=== PATIENT | male | born 1970 | race African-American/Black ===

== ENCOUNTER 2016-03-19 10:05 | Day surgery (SDC) | payer OTHER ==
--- NOTE | 2016-01-29 15:16 | HP ---
DATE OF ADMISSION: 01/07/16 Patient to be admitted to [facility]. HISTORY: This is a 45-year-old man admitted to the hospital for open repair of a complex chronically incarcerated abdominal wall hernia with possible component separation. Patient has had several prior interventions in the form of an appendectomy in approximately 2005. He went on to develop an abdominal hernia, which required a repair with mesh in 2007. He has also had a low back fusion in 2012. Patient has gone on to develop recurrence of his hernia involving the upper midline and stemming off significantly to the right of the midline. No underlying GI, , or respiratory complaints to suggest predisposition to hernia formation. Patient's past medical history is significant for hypertension, heart disease, status post CO in 2013. No history of diabetes, respiratory, or hepatic insufficiency. Past surgical history as outlined above. ALLERGIES: None known. MEDICATIONS: Entresto, carvedilol, spironolactone, Lasix, warfarin once daily. SOCIAL HISTORY: Negative tobacco. Patient did smoke approximately 20 years ago. Negative alcohol use. FAMILY HISTORY: Nil. REVIEW OF SYSTEMS: Nil. PHYSICAL EXAMINATION: Abdomen obese, soft, nontender. Large hernia involving the entire central ring of the abdomen extending well up into the upper midline and off to the right of the midline itself. It is irreducible. Surgical scars noted consistent with prior hernia surgery as well as appendectomy. IMPRESSION: Complex chronically incarcerated recurrent incisional/ventral abdominal wall hernia. PLAN: Open repair of complex recurrent chronically incarcerated incisional/ventral abdominal wall hernia with mesh/possible component separation. Indications, alternatives, possible complications reviewed. Consent obtained. Patient was seen preoperatively by Dr. Candido Santiago, of the primary care service. Patient also to be seen preoperatively by Dr. Alejandro Lawler, of the cardiology service. Obviously his anticoagulation will need to be managed in and around the time of surgery. Indications, alternatives, possible complications are reviewed. Consent obtained. Kaitlyn GARCIA/[id number] Cc: MD Alejandro Damico MD [facility]
[2016-03-18 12:40] VITALS: BMI 37.3
[2016-03-19 10:50] LABS: INR 0.96 (0.82-1.09); PROTHROMBIN TIME (PATIENT) 10.5 SEC (9.98-11.88)
[2016-03-19] MEDS ORDERED: ceFAZolin SODIUM 1 GM VIAL ONE ×2 (10:50→13:43)
[2016-03-19 10:53] LABS: ACTIVATED PTT 28.3 SECONDS (26.9-34.4)
[2016-03-19] MEDS ORDERED: SUCCINYLCHOLINE CHLORIDE 200 MG/10 ML VIAL ONE (13:09)
[2016-03-19] MEDS ORDERED: ROCURONIUM BROMIDE 50 MG/5 ML VIAL ONE ×3 (13:09→14:16)
[2016-03-19] MEDS ORDERED: PROPOFOL 20 ML ONE ×3 (13:09→13:35)
[2016-03-19] MEDS ORDERED: MIDAZOLAM HCL 2 MG/2 ML SINGLE DOSE VIAL ONE ×3 (13:09→15:37)
[2016-03-19] MEDS ORDERED: ceFAZolin SODIUM 1 GM VIAL IVPB ONE (13:44)
[2016-03-19] MEDS ORDERED: morphine CARPU-JECT 10 MG/1 ML DISP.SYRIN IVPB PRN (14:03)
[2016-03-19] MEDS ORDERED: ONDANSETRON 4 MG/2 ML VIAL IVPB PRN (14:03)
[2016-03-19] MEDS ORDERED: ACETAMINOPHEN 325 MG TABLET (FP) PO PRN (14:03)
[2016-03-19] MEDS ORDERED: DEXAMETHASONE SOD PHOSPHATE 4 MG/1 ML VIAL ONE (14:07)
[2016-03-19] MEDS ORDERED: D5-1/2NS+20 MEQ KCL - 1,000 ML IV SCH (14:15)
[2016-03-19] MEDS ORDERED: GLYCOPYRROLATE 0.2 MG/1 ML VIAL ONE (15:06)
[2016-03-19] MEDS ORDERED: NEOSTIGMINE METHYLSULFATE 0.5 MG/ML - 10 ML MDV ONE (15:06)
[2016-03-19] MEDS ORDERED: PROMETHAZINE HCL 25 MG/1 ML VIAL IVPUSH PRN (15:56)
[2016-03-19] MEDS ORDERED: ONDANSETRON 4 MG/2 ML VIAL IVPUSH PRN (15:56)
[2016-03-19] MEDS ORDERED: LACTATED RINGERS SOLUTION 1,000 ML IV SCH (16:00)
[2016-03-19] MEDS: hydrALAZINE HCL 20 MG/ML VIAL ONE ×2 (16:00→16:15)
[2016-03-19] MEDS ORDERED: FLUMAZENIL 0.5 MG/5 ML VIAL ONE (16:04)
[2016-03-19] MEDS ORDERED: morphine CARPU-JECT 4 MG/1 ML DISP.SYRIN IVPB PRN (20:54)
[2016-03-19] MEDS: CARVEDILOL 25 MG TABLET (FP) PO SCH (20:59)
[2016-03-19] MEDS: oxyCODONE HCL 5 MG TABLET PO PRN (20:59)
[2016-03-20 02:48] VITALS: TEMP 98.5
[2016-03-20] MEDS: oxyCODONE HCL 5 MG TABLET PO PRN ×2 (03:45→09:35)
[2016-03-20 08:18] VITALS: BP 108/58; PULSE 79
[2016-03-20] MEDS: CARVEDILOL 25 MG TABLET (FP) PO SCH (09:32)
[2016-03-20] MEDS ORDERED: PANTOPRAZOLE SODIUM 100 ML IVPB SCH (10:00)
[2016-03-20] MEDS ORDERED: ENOXAPARIN NA (PORCINE) 40 MG/0.4 ML DISP.SYRIN SQ SCH (10:00)
[2016-03-20] MEDS ORDERED: SPIRONOLACTONE 25 MG TABLET (FP) PO SCH (10:00)
--- NOTE | 2016-03-20 11:01 | OP ---
DATE OF OPERATION: 03/19/2016 PREOPERATIVE DIAGNOSIS: Complex chronically incarcerated ventral/incisional abdominal wall hernia. POSTOPERATIVE DIAGNOSIS: Complex chronically incarcerated ventral/incisional abdominal wall hernia. PROCEDURE: Bilateral component separation repair of complex chronically incarcerated ventral/incisional abdominal wall hernia with mesh/mobilization, bladder. OPERATING SURGEON: Bryce Anglin MD COMMISSARY MANAGER: Vega Leavitt MD ANESTHESIA: Derrick Archer MD (general) HISTORY: A 46-year-old man who is morbidly obese and presents with a large anterior abdominal wall hernia which is chronically incarcerated and recurrent. Indications, alternatives, possible complications of the intended procedure reviewed. Consent obtained. PROCEDURE: With the patient in the supine position, under general anesthesia, the abdomen was prepped and draped in the usual sterile fashion using chlorhexidine. A midline incision was made beginning in the supraumbilical midline, with the incision extending into the infraumbilical midline. The incision was deepened into the subcutaneous space. The large hernia was easily encountered in the subcutaneous space. The hernia sac was cleaned to the level of the fascial ring. The sac was opened and found to contain incarcerated omentum. Lysis of adhesions ensued, and the incarcerated contents were reduced. The undersurface of both the supra and infraumbilical region was then examined, and there were other defects along the course of the midline. The bridge between these was divided and 1 large defect left. In order to bridge the defect, I had to recreate the midline; a bilateral component separation procedure was necessary. First directing our attention to the patient's right side, the posterior rectus sheath was from the overlying right rectus musculature. This mobilization extended both superiorly, inferiorly, and laterally, ultimately approaching the junction of the rectus muscle with the right transversus and oblique musculature. Separation of the oblique musculature from the underlying thin transversus muscle ensued and using the same plane the dissection was carried out further in the lateral, superior, and inferior direction. Now directing our attention to the patient's left side, the posterior sheath was again from the overlying rectus musculature and mobilized as described above to the right. Again, the oblique musculature was from the transversus musculature with the dissection again extending in the superior, lateral, and inferior directions. The bladder was mobilized free from its attachment in the inferior aspect of the anterior abdominal wall so that it would not be caught up either with mesh or with the intended closure. The posterior sheath was then approximated in the midline using a continuous 3-0 chromic suture, recreating the midline and closing the abdominal cavity. A composite mesh was then made, fixing a piece of 20 x 20 Phasix mesh to a similar size piece of ProGrip mesh. The mesh was placed in the retrorectus space with the Phasix side down. The mesh was then fixed circumferentially using an AbsorbaTack and counter palpation. Several interrupted 0 Prolene sutures were also placed, anchoring the mesh through and through to the overlying abdominal musculature. Ultimately, after adequate hemostasis and irrigation, the anterior sheath was then closed in a continuous and interrupted fashion using No. 1 PDS suture material, leaving the mesh entirely in the retrorectus space. A Ramón-Miles drain was placed in the capacious subcutaneous space and was pulled out through a separate stab wound in the left lower quadrant where the drain was tacked to the skin with 3-0 nylon suture material. The subcutaneous space was then irrigated and adequate hemostasis ensured. Subcuticular 3-0 Vicryl sutures were placed to approximate the skin edges. Ultimately, metallic clips were used to approximate the skin edges of the wound. Dermabond placed over the metallic clips and the procedure terminated. COUNTS: Needle, sponge, and instrument counts correct. ESTIMATED BLOOD LOSS: 50 mL. DRAINS: One J-P. IMPLANT: Phasix mesh/ProGrip mesh. The patient tolerated the procedure, and anesthesia was terminated. Kaitlyn GARCIA/[id number] cc: Candido Santiago MD MTDD
== END 2016-03-20 10:55 | disposition home or self-care (01) ==
LOC: JASUSAT 10:05 → J6S 19:40 → JASUSAT 03-20 10:55
PROVIDERS: ATTEND Surgery
PROC: 0WUF0JZ Supplement Abdominal Wall with Synthetic Substitute, Open Approach (ICD-10-PCS; principal; 2016-03-19 12:00)
DX: K43.0 Incisional hernia with obstruction, without gangrene (principal); M62.08 Separation of muscle (nontraumatic), other site; E66.01 Morbid (severe) obesity due to excess calories
CPT/HCPCS: 36415; 85610; 85730; 86850; 86900; 86901; 94010; 94760

== ENCOUNTER 2017-04-14 18:53 | Inpatient (IN) | payer OTHER ==
[2017-04-14] MEDS ORDERED: ASPIRIN 81 MG CHEWABLE TABLETS PO ONE (18:59)
--- NOTE | 2017-04-14 18:59 | PDOC ---
Rapid Medical Evaluation Time Seen by Provider: 04/14/17 18:55 Medical Evaluation: Allergies Allergy/AdvReac Type Severity Reaction Status Date / Time No Known Drug Allergies Allergy Verified 04/14/17 18:55 soy Allergy Verified 04/14/17 18:55 dust Allergy Unknown Uncoded 04/14/17 18:55 04/14/17 18:56 I have performed a brief in-person evaluation of this patient. The patient presents with a chief complaint of: chest pain and SOB x2 days Pertinent physical exam findings:HR-133, Spo2-92% RA Lungs CTAB, Regular rhythm no m/r/g. I have ordered the following: EKG, CXR, labs The patient will proceed to the ED for further evaluation. Discharge Disposition - Diagnosis Chest pain - Referrals - Patient Instructions - Post Discharge Activity
--- NOTE | 2017-04-14 19:39 | PDOC ---
History of Present Illness - General Chief Complaint: Chest Pain Stated Complaint: S.O.B Time Seen by Provider: 04/14/17 18:55 History Source: Patient Exam Limitations: No Limitations - History of Present Illness Initial Comments: CHIEF COMPLAINT: 47 y/o afebrile, morbidly obese male with PMH HTN, CHF, HLD and hx of DVTs (supposed to be on warfarin), non-compliant with all medications for "many months" c/o worsening SOB and CP x 3 days. HISTORY OF PRESENT ILLNESS: The patient states the chest pain is worse with cough and does not radiate. The patient admits to dry cough and mild runny nose. He has been non compliant with all medications for the past "few months" because, according to his , he is "hard headed". He has had multiple DVTs in the past and is supposed to be on Coumadin. He denies MÉNDEZ, fever, changes in vision/hearing, neck pain, earache, sore throat, hemoptysis, n/v/d, back pain, jaw pain, left arm pain, abd pain, hematuria, dysuria, swelling/redness/ tenderness to legs. He is a non-smoker. PCP is Dr. Traore Tool Sharpener is Dr. Lawler Vital signs on arrival are notable for pulse of 133 with O2 sat of 92% on RA. RR 26. BP 176/128. REVIEW OF SYSTEMS: GENERAL/CONSTITUTIONAL: No fever/chills. No weakness. No weight change. HEAD, EYES, EARS, NOSE AND THROAT: No change in vision. No ear pain or discharge. No sore throat. CARDIOVASCULAR: +chest pain and SOB. RESPIRATORY: +dry cough. No wheezing or hemoptysis. GASTROINTESTINAL: No nausea, vomiting, diarrhea, abdominal pain. GENITOURINARY: No dysuria, frequency, or change in urination. MUSCULOSKELETAL: No joint or muscle swelling or pain. No neck or back pain. SKIN: No rash or easy bruising. NEUROLOGIC: No headache, vertigo, loss of consciousness, or loss of sensation. PHYSICAL EXAM: GENERAL: The patient is a morbidly obese, awake, alert, and fully oriented, male in no acute distress. He is not diaphoretic. He can speak in full sentences without difficulty. He is non toxic appearing. HEAD: Normal with no signs of trauma. ENT: Pupils equal, round and reactive to light, extraocular movements intact, sclera anicteric, conjunctiva clear. LUNGS: Clear to auscultation bilaterally. Normal excursion. No respiratory distress or use of accessory muscles. CV: Tachycardic with regular rhythm, S1/S2, no MRG. Cap refill < 2 sec. ABDOMEN: Soft, obese, non-tender even to deep palpation, no hepatomegaly or splenomegaly, no masses. EXTREMITIES: Normal range of motion, no edema. No erythema, warmth or TTP to b/ l LEs. NEUROLOGICAL: Normal speech. CN II-XII grossly intact. No slurred speech. No facial drooping. PSYCH: Normal mood, normal affect. SKIN: Warm, dry, normal turgor, no rashes or lesions noted. Past History - Past Medical History Allergies/Adverse Reactions: Allergies Allergy/AdvReac Type Severity Reaction Status Date / Time No Known Drug Allergies Allergy Verified 04/14/17 18:55 soy Allergy Verified 04/14/17 18:55 dust Allergy Unknown Uncoded 04/14/17 18:55 Home Medications: Ambulatory Orders Carvedilol [Coreg -] 25 mg PO BID tablet 11/09/15 Spironolactone [Aldactone -] 50 mg PO DAILY tablet 11/09/15 Warfarin Na [Coumadin -] 5 mg PO DAILY@1800 tablet 11/09/15 Oxycodone HCl/Acetaminophen [Percocet 5-325 mg Tablet] 1 tab PO Q4H PRN #42 tablet MDD 6 03/19/16 Cardiac Disorders: Yes ([place] 07/2012) CHF: Yes HTN: Yes - Surgical History Abdominal Surgery: Yes (appednix) Cardiac Surgery: Yes (ANGIO) - Immunization History Immunization Up to Date: Yes - Suicide/Smoking/Psychosocial Hx Smoking Status: No Smoking History: Never smoked Have you smoked in the past 12 months: No Number of Cigarettes Smoked Daily: 0 Cigars Per Day: 0 Hx Alcohol Use: No Drug/Substance Use Hx: No Substance Use Type: None Hx Substance Use Treatment: No *Physical Exam - Vital Signs Last Vital Signs Temp Pulse Resp BP Pulse Ox 99.1 F 127 H 32 H 167/124 98 04/14/17 18:56 04/14/17 22:02 04/14/17 22:02 04/14/17 22:02 04/14/17 22:02 Heart Score/ECG Review - History History: Moderately suspicious - Electrocardiogram EKG: Non specific repolarization disturbance - Age Age: 45-65 - Risk Factors Risk Factors Heart Score: Yes Hx Hypercholesterolemia, Yes Hx Hypertension, Yes Hx Obesity Based on the list above the patient has:: >/=3 risk factors or Hx atherosclerotic disease - ECG Intrepretation Comment:: Twelve-lead EKG was performed and reviewed by Dr. Vazquez. There is sinus tachycardia. The axis is normal. The intervals are normal. Non specific T wave abnormality. Impression: Abnormal twelve-lead EKG When compared to prior of 11/06/16, flipped T waves in V5 and V6, along with tachycardia. ED Treatment Course - LABORATORY CBC & Chemistry Diagram: 04/14/17 19:23 04/14/17 19:23 - ADDITIONAL ORDERS Additional order review: Laboratory Results 04/14/17 04/14/17 19:23 19:23 PT with INR 11.10 INR 0.98 D-Dimer 1545 H Sodium 141 Potassium 4.0 Chloride 107 Carbon Dioxide 26 Anion Gap 8 BUN 10 D Creatinine 1.1 Creat Clearance w eGFR > 60 Random Glucose 93 D Calcium 8.5 Magnesium 1.9 Total Bilirubin 0.7 D AST 27 D ALT 50 D Alkaline Phosphatase 86 Creatine Kinase 216 Creatine Kinase Index 1.2 CK-MB (CK-2) 2.729 Troponin I 0.41 H D B-Natriuretic Peptide 1851.17 H Total Protein 6.8 Albumin 3.6 04/14/17 19:23 RBC 5.48 MCV 77.4 L MCHC 31.8 L RDW 16.2 H D MPV 8.1 Neutrophils % 66.6 D Lymphocytes % 21.8 D Monocytes % 8.6 Eosinophils % 2.6 D Basophils % 0.4 D - RADIOLOGY Radiology Studies Ordered: Category Date Time Status CHEST CTA [CT] Stat CT Scan 04/14/17 21:00 Completed CHEST X-RAY PORTABLE* [RAD] Stat Radiology 04/14/17 19:51 Taken DUPLEX VASCUL US-2LEGS [US] Stat Ultrasound 04/14/17 19:51 Completed - Medications Given in the ED: ED Medications Discontinued Medications Generic Name Dose Route Start Last Admin Trade Name Freq PRN Reason Stop Dose Admin Aspirin 325 mg 04/14/17 18:59 04/14/17 19:47 Asa - PO 04/14/17 19:00 325 mg ONCE ONE Administration Diphenhydramine HCl 50 mg 04/14/17 21:58 04/14/17 22:00 Benadryl Injection - IVPUSH 04/14/17 21:59 50 mg ONCE ONE Administration Furosemide 40 mg 04/14/17 22:06 04/14/17 22:26 Lasix Injection - IVPUSH 04/14/17 22:07 40 mg ONCE ONE Administration Methylprednisolone Sodium Succinate 125 mg 04/14/17 21:58 04/14/17 22:00 Solu-Medrol - IVPUSH 04/14/17 21:59 125 mg ONCE ONE Administration Metoprolol Tartrate 5 mg 04/14/17 19:54 04/14/17 20:03 Lopressor Injection - IVPUSH 04/14/17 19:55 5 mg ONCE ONE Administration Nitroglycerin 0.4 mg 04/14/17 20:33 04/14/17 20:36 Nitrostat - SL 04/14/17 20:34 0.4 mg ONCE ONE Administration Medical Decision Making - Medical Decision Making A/P: 47 y/o male with worsening chest pain and SOB for the past 3 days. Pt has a hx of multiple DVTs, HTN and HLD and is non complaint with all medications. Plan is to do a full cardiac work up. Patient is on cardiac monitoring, has been given 325mg of aspirin, was given 5mg of Lopressor IV and is on O2 via NC. Pressure still 164/129 after lopressor. Will give SL nitro Pt had a hard time lying down for the CTA of his chest and admits to me that he has to sit up to sleep because he is too short of breath to lie flat. He stopped taking the medicine that "made him pee" months ago. Patient returned from CTA and LE ultrasound and developed hives on his upper chest and back and began coughing up pink frothy sputum and sweating. he had never had IV contrast in the past and was having an allergic reaction. Ordered IV benadryl, IV solumedrol and non rebreather. 5 minutes after medication administration he began feeling much better and his breathing rate slowed. He does admit after having SL nitro he feels better with almost complete resolution of CP. Chest CTA IMPRESSION: No evidence of PE. Pulmonary vascular congestion and pulmonary edema suggestive of CHF exacerbation. Will order IV lasix. Patient informed he will be admitted. Venous doppler IMPRESSION: No evidence of DVT in either leg. Patient accepted by Dr. Carbajal for admission to [facility]. Dr. Lawler on for consult *DC/Admit/Observation/Transfer Diagnosis at time of Disposition: Chest pain Qualifiers: Chest pain type: unspecified Qualified Code(s): R07.9 - Chest pain, unspecified CHF (congestive heart failure) Qualifiers: Heart failure type: unspecified Heart failure chronicity: unspecified Qualified Code(s): I50.9 - Heart failure, unspecified - Discharge Dispostion Condition at time of disposition: Fair Admit: Yes Decision to Admit order Date/Time: Decision to Admit Order Category Date Time Status Decision to Admit to Hospital Routine Admission 04/14/17 22:26 Ordered - Referrals - Patient Instructions - Post Discharge Activity
[2017-04-14 19:44] LABS: BASO % 0.4 % (0-2.0); EOS % 2.6 % (0-4.5); HEMATOCRIT 42.4 % (35.4-49); HEMOGLOBIN 13.5 GM/dL (11.7-16.9); LYMPH % 21.8 % (8-40); MCH 24.6 pg (25.7-33.7); MCHC 31.8 g/dl (32.0-35.9); MEAN CELL VOLUME 77.4 fl (80-96); MEAN PLT VOLUME 8.1 fl (7.5-11.1); MONO % 8.6 % (3.8-10.2); NEUT % 66.6 % (42.8-82.8); PLATELET COUNT 261 K/MM3 (134-434); RBC 5.48 M/mm3 (4.00-5.60); RDW 16.2 % (11.9-15.9); WHITE BLOOD COUNT 8.8 K/mm3 (4.0-10.0)
[2017-04-14] MEDS ORDERED: ASPIRIN 325 MG TABLET ONE (19:45)
[2017-04-14] MEDS ORDERED: METOPROLOL TARTRATE 5 MG/5 ML VIAL IVPUSH ONE (19:54)
[2017-04-14] MEDS ORDERED: METOPROLOL TARTRATE 5 MG/5 ML VIAL ONE (19:57)
[2017-04-14 20:09] LABS: INR 0.98 (0.82-1.09); PROTHROMBIN TIME (PATIENT) 11.1 SEC (9.98-11.88)
[2017-04-14 20:21] LABS: ALBUMIN 3.6 g/dl (3.4-5.0); ANION GAP 8 (8-16); BILIRUBIN,TOTAL 0.7 mg/dL (0.2-1.0); BLOOD UREA NITROGEN 10 mg/dL (7-18); CALCIUM 8.5 mg/dL (8.5-10.1); CHLORIDE 107 mmol/L (98-107); CO2 26 mmol/L (21-32); CREATININE 1.1 mg/dL (0.7-1.3); GLUCOSE,RANDOM 93 mg/dL (74-106); MAGNESIUM 1.9 mg/dL (1.8-2.4); SGOT/AST 27 U/L (15-37); SGPT/ALT 50 U/L (12-78); SODIUM 141 mmol/L (136-145); TOT PROT 6.8 g/dl (6.4-8.2)
[2017-04-14 20:24] LABS: ALK PHOS 86 U/L (45-117); N-TERMINAL BNP 1851.17 pg/ml (5-125)
[2017-04-14] MEDS ORDERED: NITROGLYCERIN SUBLINGUAL 1/150 0.4 MG TAB SL ONE (20:33)
--- NOTE | 2017-04-14 20:58 | PDOC ---
*Physical Exam - Vital Signs Last Vital Signs Temp Pulse Resp BP Pulse Ox 99.1 F 116 H 24 171/112 92 L 04/14/17 18:56 04/14/17 19:53 04/14/17 19:53 04/14/17 20:03 04/14/17 18:56 ED Treatment Course - LABORATORY CBC & Chemistry Diagram: 04/14/17 19:23 04/14/17 19:23 - ADDITIONAL ORDERS Additional order review: Laboratory Results 04/14/17 04/14/17 19:23 19:23 PT with INR 11.10 INR 0.98 D-Dimer 1545 H Sodium 141 Potassium 4.0 Chloride 107 Carbon Dioxide 26 Anion Gap 8 BUN 10 D Creatinine 1.1 Creat Clearance w eGFR > 60 Random Glucose 93 D Calcium 8.5 Magnesium 1.9 Total Bilirubin 0.7 D AST 27 D ALT 50 D Alkaline Phosphatase 86 Creatine Kinase 216 Troponin I 0.41 H D B-Natriuretic Peptide 1851.17 H Total Protein 6.8 Albumin 3.6 04/14/17 19:23 RBC 5.48 MCV 77.4 L MCHC 31.8 L RDW 16.2 H D MPV 8.1 Neutrophils % 66.6 D Lymphocytes % 21.8 D Monocytes % 8.6 Eosinophils % 2.6 D Basophils % 0.4 D - Medications Given in the ED: ED Medications Discontinued Medications Generic Name Dose Route Start Last Admin Trade Name Freq PRN Reason Stop Dose Admin Aspirin 325 mg 04/14/17 18:59 04/14/17 19:47 Asa - PO 04/14/17 19:00 325 mg ONCE ONE Administration Metoprolol Tartrate 5 mg 04/14/17 19:54 04/14/17 20:03 Lopressor Injection - IVPUSH 04/14/17 19:55 5 mg ONCE ONE Administration Nitroglycerin 0.4 mg 04/14/17 20:33 04/14/17 20:36 Nitrostat - SL 04/14/17 20:34 0.4 mg ONCE ONE Administration Medical Decision Making - Medical Decision Making 04/14/17 20:57 agree with care from RADHA Champagne *DC/Admit/Observation/Transfer Diagnosis at time of Disposition: Chest pain - Referrals - Patient Instructions - Post Discharge Activity
[2017-04-14] MEDS ORDERED: methylPREDNISolone NA SUCC 125 MG/2 ML VIAL ONE (21:52)
[2017-04-14] MEDS ORDERED: methylPREDNISolone NA SUCC 125 MG/2 ML VIAL IVPUSH ONE (21:58)
[2017-04-14] MEDS ORDERED: FUROSEMIDE 40 MG/4 ML INJECTABLE VIAL IVPUSH ONE ×2 (22:06→23:44)
[2017-04-14] MEDS ORDERED: FUROSEMIDE 40 MG/4 ML INJECTABLE VIAL ONE (22:18)
--- NOTE | 2017-04-14 22:44 | PN ---
Teaching Attending Note Name of Resident: Stephan Vidales ATTENDING PHYSICIAN STATEMENT I saw and evaluated the patient. I reviewed the resident's note and discussed the case with the resident. I agree with the resident's findings and plan as documented. SUBJECTIVE: 47 M with Med hx of Morbid Obesity, ANDRZEJ, HTN, CHF, CAD, Art. thrombus, DVT, (NOn - Complaint w. all meds) who presents with shortness of breath and chest pain X several months. As per his he is "hard- headed" and d/c'd his Coumadin. No headaches or dizziness. No N/V/D. States he has sub sternal chest pain that is non-radiating. Notes he is not able to lay flat, without being short of breath. States he has not been taking any of his meds in over a month. PCP: DR. Traore OBJECTIVE: Physical: VS: Vital Signs Period Temp Pulse Resp BP Sys/Dorman Pulse Ox Last 24 Hr 99.1 F 116-133 24-32 0-176/0-128 92-98 GEN: NAD, resting in bed, AA0X3 HEENT: NCAT, PERRL, throat without erythema or exudates CARD: S tach S1, S2 RESP: Decreased breath sounds at bilateral bases ABD: BSx4, NTD to palpation EXT: - C/C/E CBCD WBC 8.8 K/mm3 (4.0-10.0) D 04/14/17 19: RBC 5.48 M/mm3 (4.00-5.60) 04/14/17 19:23 Hgb 13.5 GM/dL (11.7-16.9) 04/14/17 19:23 Hct 42.4 % (35.4-49) 04/14/17 19:23 MCV 77.4 fl (80-96) L 04/14/17 19:23 MCHC 31.8 g/dl (32.0-35.9) L 04/14/17 19: RDW 16.2 % (11.9-15.9) H D 04/14/17 19:23 Plt Count 261 K/MM3 (134-434) 04/14/17 19: MPV 8.1 fl (7.5-11.1) 04/14/17 19:23 CMP Sodium 141 mmol/L (136-145) 04/14/17 19:23 Potassium 4.0 mmol/L (3.5-5.1) 04/14/17 19:23 Chloride 107 mmol/L (98-107) 04/14/17 19:23 Carbon Dioxide 26 mmol/L (21-32) 04/14/17 19:23 Anion Gap 8 (8-16) 04/14/17 19:23 BUN 10 mg/dL (7-18) D 04/14/17 19:23 Creatinine 1.1 mg/dL (0.7-1.3) 04/14/17 19:23 Creat Clearance w eGFR > 60 (>60) 04/14/17 19:23 Random Glucose 93 mg/dL (74-106) D 04/14/17 19:23 Calcium 8.5 mg/dL (8.5-10.1) 04/14/17 19:23 Total Bilirubin 0.7 mg/dL (0.2-1.0) D 04/14/17 19:23 AST 27 U/L (15-37) D 04/14/17 19:23 ALT 50 U/L (12-78) D 04/14/17 19:23 Alkaline Phosphatase 86 U/L (45-117) 04/14/17 19:23 Total Protein 6.8 g/dl (6.4-8.2) 04/14/17 19: Albumin 3.6 g/dl (3.4-5.0) 04/14/17 19:23 CARDIAC ENZYMES Creatine Kinase 216 IU/L (39-308) 04/14/17 19:23 Troponin I 0.41 ng/ml (0.00-0.05) H D 04/14/17 19:23 Ambulatory Orders Carvedilol [Coreg -] 25 mg PO BID tablet 11/09/15 Spironolactone [Aldactone -] 50 mg PO DAILY tablet 11/09/15 Warfarin Na [Coumadin -] 5 mg PO DAILY@1800 tablet 11/09/15 Oxycodone HCl/Acetaminophen [Percocet 5-325 mg Tablet] 1 tab PO Q4H PRN #42 tablet MDD 6 03/19/16 CXR- COngestion CTA- Neg. For PE, hyperplastic mediastinal LN reactive, Pulm. Vasc. Congestion DUPLEX- NEg. for DVT EKG: ECHO: 04/10- EF 21%, LV mod Dilated, LA mod dilated, mild pulm. htn, ASSESSMENT AND PLAN: 47 M with Med hx of Morbid Obesity, ANDRZEJ, HTN, CHF, CAD, Art. thrombus, DVT, (NOn - Complaint w. all meds) who presents with shortness of breath and chest pain X several months, being admitted for Acute Exacerbation of CHF and Troponin Elevation. 1.) Acute Exacerbation of Systolic Heart Failure - Lasix IV - Strict I/O - Daily Weights - NA/Fluid Restrict - ECHO Repeat - Cardio Consult - Advise Compliance with Coreg, aldactone - Would Add Stan or Arb 2.) Troponin Elevation - Demand Vs. NSTEMI - Hep. gtt - Morphine/Nitro PRn Pain - 02 - C/W Coreg - TRend Trop/EKG 3.) Hx. OF Recurrent DVTs - Hep. Gtt - Bridge to Coumadin or Noac if able in am - Goal INR 2-3 - Needs Hypercoag. [facility] outpt. if Not already done 4.) HTN - C/W Coreg, Aldactone 5.) ANDRZEJ - C/W CPAP at night Place in Med-Tele
--- NOTE | 2017-04-14 22:55 | HP ---
CHIEF COMPLAINT: SOB and Chest pain x4 days PCP: Dr Traore Clinical Staff Rn: Dr Lawler HISTORY OF PRESENT ILLNESS: 47 y/o obese male with PMHx of HTN, systolic CHF, HLD, ANDRZEJ (on home CPAP), hay fever, prior anaphylactic reaction, recurrent DVTs , non-compliant on medications for at least 5 months, now c/o worsening SOB and Chest Pain x 3 days. Patient has had exertional SOB, orthopnea and PND that has worsened over the past 4 days. Denies leg/ abdominal pain/swelling/early satiety. He developed retrosternal "pressure-like" chest pain x 4 days ago, that is worsened by movement, but non radiating. Pt reports a dry cough that worsens the chest pain. No associated n/v/diaphoresis. No syncope, or palpitations. Pt had an echo done 2015 that showed EF 21%, with his last cardio follow up and medication use about 5 months ago. After the CTA to R/O PE today, pt suddenly developed acute choking sensation, with increasingly productive cough of pink sputum and generalized redness which resolved with benadryl and solumedrol. Pt had similar reaction in past with collapse following ingestion of soy. ER course was notable for: (1) ASA-325, iv lasix 40mg stat, iv morphine 2mg stat, sl nitroglycerin stat (2) Trops-0.41, BNP-1545, INR-0.98 (3) Persistent mkmmn-[id number], tachypnea- 31 (on RA/Non rebreather), BP- 167/124- 145/109 (4) EKG- sinus tachy, non specific twi Recent Travel: None PAST MEDICAL HISTORY: HTN, systolic CHF, HLD, ANDRZEJ (on home CPAP), hay fever, prior anaphylactic reaction, recurrent DVTs PAST SURGICAL HISTORY: appendectomy Ventral herniorrhaphy Social History: Smoking:Quit 25 yrs ago. Smoked a pack/day cannot remember for how long Alcohol:Social- weekly beers Drugs: Denies Family History: Father of heart condition Mother of DM Allergies No Known Drug Allergies Allergy (Verified 04/14/17 18:55) soy Allergy (Verified 04/14/17 18:55) dust Allergy (Unknown, Uncoded 04/14/17 18:55) Iv contrast HOME MEDICATIONS: Home Medications Medication Instructions Recorded Carvedilol [Coreg -] 25 mg PO BID tablet 11/09/15 Spironolactone [Aldactone -] 50 mg PO DAILY tablet 11/09/15 Warfarin Na [Coumadin -] 5 mg PO DAILY@1800 tablet 11/09/15 Oxycodone HCl/Acetaminophen 1 tab PO Q4H PRN #42 tablet MDD 6 03/19/16 [Percocet 5-325 mg Tablet] REVIEW OF SYSTEMS CONSTITUTIONAL: Absent: fever, chills, diaphoresis, generalized weakness, malaise, loss of appetite, weight change HEENT: Absent: rhinorrhea, nasal congestion, throat pain, throat swelling, difficulty swallowing, mouth swelling, ear pain, eye pain, visual changes CARDIOVASCULAR: Absent: chest pain+, syncope, palpitations, irregular heart rate, lightheadedness, peripheral edema RESPIRATORY: cough+, shortness of breath+, dyspnea with exertion+, orthopnea+, Absent: wheezing, stridor, hemoptysis GASTROINTESTINAL: Absent: abdominal pain, abdominal distension, nausea, vomiting, diarrhea, constipation, melena, hematochezia GENITOURINARY: Absent: dysuria, frequency, urgency, hesitancy, hematuria, flank pain, genital pain MUSCULOSKELETAL: Absent: myalgia, arthralgia, joint swelling, back pain, neck pain SKIN: Absent: rash, itching, pallor HEMATOLOGIC/IMMUNOLOGIC: Absent: easy bleeding, easy bruising, lymphadenopathy, frequent infections ENDOCRINE: Absent: unexplained weight gain, unexplained weight loss, heat intolerance, cold intolerance NEUROLOGIC: Absent: headache, focal weakness or paresthesias, dizziness, unsteady gait, seizure, mental status changes, bladder or bowel incontinence PSYCHIATRIC: Absent: anxiety, depression, suicidal or homicidal ideation, hallucinations. PHYSICAL EXAMINATION Vital Signs - 24 hr 04/14/17 04/14/17 04/14/17 18:56 19:53 20:03 Temperature 99.1 F Pulse Rate 133 H Pulse Rate [ 116 H Apical] Respiratory 26 H 24 Rate Blood Pressure 0/0 171/112 Blood Pressure 176/128 174/120 [Left Arm] O2 Sat by Pulse 92 L Oximetry (%) 04/14/17 22:02 Temperature Pulse Rate Pulse Rate [ 127 H Apical] Respiratory 32 H Rate Blood Pressure Blood Pressure 167/124 [Left Arm] O2 Sat by Pulse 98 Oximetry (%) GENERAL: Obese male, Awake, alert, and fully oriented, in mild respiratory distress on NRB oxygen (tachypneic 25-30?min, spO2-100%), sitting upright in bed. HEAD: Normal with no signs of trauma. EYES: Pupils equal, round and reactive to light, extraocular movements intact, sclera anicteric, conjunctiva clear. EARS, NOSE, THROAT: Ears normal, nares patent, oropharynx clear without exudates. Moist mucous membranes. NECK: Normal range of motion, supple without lymphadenopathy, no JVD. LUNGS: reduced inspiratory effort. Breath sounds reduced bilaterally. No wheezes , and no crackles. HEART: Tachycardic, S1 and S2 without murmur, rub or gallop. ABDOMEN: Soft, nontender, not distended, normoactive bowel sounds, no guarding, no rebound, no masses. No hepatomegaly or splenomegaly. MUSCULOSKELETAL: Normal range of motion at all joints. No bony deformities or tenderness. No CVA tenderness. UPPER EXTREMITIES: 2+ pulses, warm, well-perfused. No cyanosis. No clubbing. No peripheral edema. LOWER EXTREMITIES: 2+ pulses, warm, well-perfused. No calf tenderness. No peripheral edema. NEUROLOGICAL: Cranial nerves II-XII intact. Normal speech. Gait not observed. PSYCHIATRIC: Cooperative. Good eye contact. Appropriate mood and affect. CBC, BMP 04/14/17 19:23 04/14/17 19:23 Laboratory Results - last 24 hr 04/14/17 04/14/17 04/14/17 19:23 19:23 19:23 WBC 8.8 D RBC 5.48 Hgb 13.5 Hct 42.4 MCV 77.4 L MCH 24.6 L MCHC 31.8 L RDW 16.2 H D Plt Count 261 MPV 8.1 Neutrophils % 66.6 D Lymphocytes % 21.8 D Monocytes % 8.6 Eosinophils % 2.6 D Basophils % 0.4 D PT with INR 11.10 INR 0.98 D-Dimer 1545 H Sodium 141 Potassium 4.0 Chloride 107 Carbon Dioxide 26 Anion Gap 8 BUN 10 D Creatinine 1.1 Creat Clearance w eGFR > 60 Random Glucose 93 D Calcium 8.5 Magnesium 1.9 Total Bilirubin 0.7 D AST 27 D ALT 50 D Alkaline Phosphatase 86 Creatine Kinase 216 Creatine Kinase Index 1.2 CK-MB (CK-2) 2.729 Troponin I 0.41 H D B-Natriuretic Peptide 1851.17 H Total Protein 6.8 Albumin 3.6 ASSESSMENT/PLAN: 47 y/o obese male with PMHx of HTN, systolic CHF, HLD, ANDRZEJ (on home CPAP), hay fever, prior anaphylactic reaction, recurrent DVTs, non-compliant on medications for at least 5 months, now c/o worsening SOB and Chest Pain SOB: Likely due to CHF exacerbation Systolic HF noted in 2016 with EF-21% Non compliant on medications Received iv lasix 40mg stat in ED Repeat iv 40mg lasix stat Cardiology consult- Dr Lawler ECHO ABG Change from NRB to BIPAP EKG- Sinus tachy, non specific TW changes Billing Clinician CTA negative for PE DVT negative BNP-1500 Salt restriction Strict ins and outs Chest pain: Could be demand ischemia R/O NSTEMI Trops-0.41 Heart score-7 (hx, EKG, age, risk factors, trops) Received nitroglycerin, ASA, morphine and O2 in ER nitroglycerin 0.3 SL Q4H PRN morphine 2mg Q4H PRN ASA 81 daily Heparin gtt 12U/kg/hr iv x 48hrs ([place] [address] iv x1, max 1000u/h ) target PTT 50-70 Trend trops trending down 0.41>>0.34 O2 as needed to keep spO2> 92% ABG- stable BNP-1500 For medication confirmation and resumption in am Hx of repeated DVTs: Non-compliant on coumadin iv heparin gtt For coumadin bridge when dose is verified HTN: Malignant hypertension on presentation Received iv lopressor 5mg in ER Resume carvedilol 25 bid Confirm other medications (entresto) in am to resume Monitor BP -2hrly ANDRZEJ: On home CPAP Change NRB to BIPAP ABGs Hay fever/anaphylactic: Received solumed and benadryl Stable for now monitor FEN: Fluid/Sodium restricted diet Monitor lytes Sodium restricted diet PPx: Heparin drip Dispo: Tele Visit type - Emergency Visit Emergency Visit: Yes ED Registration Date: 04/15/17 Care time: The patient presented to the Emergency Department on the above date and was hospitalized for further evaluation of their emergent condition. - New Patient This patient is new to me today: Yes Date on this admission: 04/15/17 - Critical Care Critical Care patient: No Hospitalist Screening - Colonoscopy Questionnaire Colonoscopy Questionnaire: Colonoscopy Questionnaire - Patient: 50 - 75 years old and never had a screening colonoscopy: No History of colon or rectal polyps, or CA: Unknown History of IBD, Crohn's disease or UC: Unknown History of abdominal radiation therapy as a child: Unknown - Relative: 1 with colon or rectal CA, or polyps at age 60 or younger: Unknown Colon or rectal CA diagnosed at age 45 or younger: Unknown Multiple relatives with colon or rectal CA: Unknown - Outcome: Screening Result: Negative Screen
[2017-04-14] MEDS ORDERED: morphine CARPU-JECT 4 MG/1 ML DISP.SYRIN IVPUSH PRN (23:44)
[2017-04-14] MEDS ORDERED: HEPARIN NA (PORCINE) 5,000 UNITS/ML 1ML VIAL IVPUSH ONE (23:59)
[2017-04-15] MEDS ORDERED: NITROGLYCERIN SUBLINGUAL 1/200 0.3 MG BTL SL PRN (00:04)
[2017-04-15] MEDS: CARVEDILOL 25 MG TABLET (FP) PO SCH ×3 (00:08→22:09)
[2017-04-15] MEDS ORDERED: CARVEDILOL 12.5 MG TABLET (FP) ONE (00:15)
[2017-04-15] MEDS ORDERED: MORPHINE SULFATE 10 MG/1 ML *VIAL ONE (00:15)
[2017-04-15] MEDS ORDERED: morphine SULFATE 4 MG/ML VIAL IVPUSH PRN (00:51)
[2017-04-15] MEDS ORDERED: HEPARIN NA (PORCINE) 5,000 UNITS/ML 1ML VIAL IVPUSH PRN ×6 (01:27→21:18)
[2017-04-15 01:35] LABS: ARTERIAL BLD GAS O2 SATURATION 94.5 % (90-98.9); ARTERIAL BLOOD GAS BASE EXCESS 1.7 meq/l (-2-2); ARTERIAL BLOOD GAS PCO2 43.8 mmHg (35-45); ARTERIAL BLOOD GAS PO2 73.5 mmHg (80-100); CARBOXYHEMOGLOBIN 1.5 gm% (0.5-2.0)
[2017-04-15 01:36] LABS: ALLENS TEST POSITIVE
[2017-04-15] MEDS ORDERED: HEPARIN INFUSION - 25,000 UNITS/500 ML INFUS.BAG IVPB ONE (01:47)
[2017-04-15] MEDS: HEPARIN INFUSION - 25,000 UNITS/500 ML INFUS.BAG IVPB SCH ×3 (02:29→23:46)
[2017-04-15 04:56] VITALS: BMI 39.0
[2017-04-15 07:20] LABS: HEMATOCRIT 42.9 % (35.4-49); HEMOGLOBIN 13.5 GM/dL (11.7-16.9); MCH 24.4 pg (25.7-33.7); MCHC 31.6 g/dl (32.0-35.9); MEAN CELL VOLUME 77.3 fl (80-96); MEAN PLT VOLUME 8.4 fl (7.5-11.1); PLATELET COUNT 281 K/MM3 (134-434); RBC 5.54 M/mm3 (4.00-5.60); RDW 16.4 % (11.9-15.9); WHITE BLOOD COUNT 14.7 K/mm3 (4.0-10.0)
[2017-04-15 07:58] LABS: ALBUMIN 3.4 g/dl (3.4-5.0); ANION GAP 6 (8-16); BILIRUBIN,TOTAL 1.1 mg/dL (0.2-1.0); BLOOD UREA NITROGEN 16 mg/dL (7-18); CALCIUM 8.3 mg/dL (8.5-10.1); CHLORIDE 105 mmol/L (98-107); CO2 30 mmol/L (21-32); CREATININE 1.4 mg/dL (0.7-1.3); GLUCOSE,RANDOM 141 mg/dL (74-106); PHOSPHOROUS 3.7 mg/dL (2.5-4.9); POTASSIUM 4.1 mmol/L (3.5-5.1); SGOT/AST 25 U/L (15-37); SGPT/ALT 45 U/L (12-78); SODIUM 141 mmol/L (136-145); TOT PROT 6.7 g/dl (6.4-8.2)
[2017-04-15 08:03] LABS: ALK PHOS 86 U/L (45-117)
[2017-04-15 08:17] LABS: INR 1.09 (0.82-1.09); PROTHROMBIN TIME (PATIENT) 12.3 SEC (9.98-11.88)
[2017-04-15 08:20] LABS: ACTIVATED PTT 36.6 SECONDS (26.9-34.4)
--- NOTE | 2017-04-15 09:22 | PN ---
Physical Exam: SUBJECTIVE: 47yoM with history of systolic CHF (Last EF measurement 40-45% in 2016), two previous DVTs requiring thrombectomy, HTN, HLD, and ANDRZEJ was seen yesterday in the ED for SOB and chest pain for 4 days. Pt reports being poorly compliant with his medications and has not taken his medications for the last 4-5 months. He also reports having a viral-like illness last week with positive sick contacts which has no resolved. Pt normally has CPAP machine at home with questionable compliance and normally sleeps on 2-3 pillows with noticing any increase in the recent past. In ED pt received lasix and while he was undergoing a CTA for PE rule out he developed a choking sputum, increased pink sputum production, and redness. He received treatment for his adverse reaction in the ER with benedryl and steroids. Pt currently has improvement of breathing and denies any chest pain/discomfort or palpitations. Pt denies any fever/chills, abdominal pain, diarrhea, n/v, dysuria, polyuria. OBJECTIVE: Vital Signs Period Temp Pulse Resp BP Sys/Dorman Pulse Ox Last 24 Hr 97.7 F-99.1 F 87-133 18-32 0-176/0-128 92-100 GENERAL: NAD, awake, alert, orientedx3, resting comfortably in bed HEENT: EOMI, BRANDYN, sclera anicteric, No JVD noted LUNGS: Basilar rales bilaterally, no wheezes, no rhonchi, no accessory muscle use. HEART: RRR, S1, S2 without murmur appreciated ABDOMEN: Soft, nontender, nondistended, normoactive bowel sounds, no guarding, no hepatojugular reflux EXTREMITIES: 2+ DP pulses, warm, no edema. NEUROLOGICAL: Nonfocal exam, normal speech, strength 5/5 throughout sensation grossly intact PSYCH: Normal mood, normal affect. SKIN: Warm, dry, normal turgor, no rashes or lesions noted Laboratory Results - last 24 hr 04/14/17 04/14/17 04/14/17 19:23 19:23 19:23 WBC 8.8 D RBC 5.48 Hgb 13.5 Hct 42.4 MCV 77.4 L MCH 24.6 L MCHC 31.8 L RDW 16.2 H D Plt Count 261 MPV 8.1 Neutrophils % 66.6 D Lymphocytes % 21.8 D Monocytes % 8.6 Eosinophils % 2.6 D Basophils % 0.4 D PT with INR 11.10 INR 0.98 PTT (Actin FS) D-Dimer 1545 H Puncture Site ABG pH ABG pCO2 at Pt Temp ABG pO2 at Pt Temp ABG HCO3 ABG O2 Sat (Measured) ABG O2 Content ABG Base Excess Julian Test Carboxyhemoglobin Methemoglobin O2 Delivery Device Oxygen Flow Rate Vent Mode Vent Rate Pressure Support Vent Sodium 141 Potassium 4.0 Chloride 107 Carbon Dioxide 26 Anion Gap 8 BUN 10 D Creatinine 1.1 Creat Clearance w eGFR > 60 Random Glucose 93 D Calcium 8.5 Phosphorus Magnesium 1.9 Total Bilirubin 0.7 D AST 27 D ALT 50 D Alkaline Phosphatase 86 Creatine Kinase 216 Creatine Kinase Index 1.2 CK-MB (CK-2) 2.729 Troponin I 0.41 H D B-Natriuretic Peptide 1851.17 H Total Protein 6.8 Albumin 3.6 04/15/17 04/15/17 04/15/17 00:53 01:15 06:40 WBC 14.7 H D RBC 5.54 Hgb 13.5 Hct 42.9 MCV 77.3 L MCH 24.4 L MCHC 31.6 L RDW 16.4 H Plt Count 281 MPV 8.4 Neutrophils % Lymphocytes % Monocytes % Eosinophils % Basophils % PT with INR INR PTT (Actin FS) D-Dimer Puncture Site Right radial ABG pH 7.40 ABG pCO2 at Pt Temp 43.8 ABG pO2 at Pt Temp 73.5 L ABG HCO3 26.4 H ABG O2 Sat (Measured) 94.5 ABG O2 Content 19.3 ABG Base Excess 1.7 Julian Test Positive Carboxyhemoglobin 1.5 Methemoglobin 0.9 O2 Delivery Device Bipap Oxygen Flow Rate 40% Vent Mode S/t Vent Rate 16 Pressure Support Vent 10/5 Sodium Potassium Chloride Carbon Dioxide Anion Gap BUN Creatinine Creat Clearance w eGFR Random Glucose Calcium Phosphorus Magnesium Total Bilirubin AST ALT Alkaline Phosphatase Creatine Kinase Creatine Kinase Index CK-MB (CK-2) Troponin I 0.34 H B-Natriuretic Peptide Total Protein Albumin 04/15/17 04/15/17 06:40 07:06 WBC RBC Hgb Hct MCV MCH MCHC RDW Plt Count MPV Neutrophils % Lymphocytes % Monocytes % Eosinophils % Basophils % PT with INR 12.30 H INR 1.09 PTT (Actin FS) 36.6 H D-Dimer Puncture Site ABG pH ABG pCO2 at Pt Temp ABG pO2 at Pt Temp ABG HCO3 ABG O2 Sat (Measured) ABG O2 Content ABG Base Excess Julian Test Carboxyhemoglobin Methemoglobin O2 Delivery Device Oxygen Flow Rate Vent Mode Vent Rate Pressure Support Vent Sodium 141 Potassium 4.1 Chloride 105 Carbon Dioxide 30 Anion Gap 6 L BUN 16 D Creatinine 1.4 H D Creat Clearance w eGFR 54.09 Random Glucose 141 H D Calcium 8.3 L Phosphorus 3.7 D Magnesium 2.0 Total Bilirubin 1.1 H D AST 25 ALT 45 Alkaline Phosphatase 86 Creatine Kinase 152 Creatine Kinase Index 1.1 CK-MB (CK-2) 1.772 Troponin I 0.24 H D B-Natriuretic Peptide Total Protein 6.7 Albumin 3.4 Active Medications Generic Name Dose Route Start Last Admin Trade Name Freq PRN Reason Stop Dose Admin Aspirin 81 mg 04/15/17 10:00 Ecotrin - PO DAILY AGUILA Carvedilol 25 mg 04/14/17 23:45 04/15/17 00:08 Coreg - PO 25 mg BID [facility] Administration Heparin Sodium (Porcine) 5,000 unit 04/15/17 01:27 Heparin - IVPUSH PRN PRN Heparin Heparin Sodium (Porcine) 1,000 unit 04/15/17 01:27 Heparin - IVPUSH PRN PRN Heparin Heparin Sodium/Dextrose 25,000 units in 500 mls @ 20 mls/hr 04/14/17 23:45 02:29 Heparin Infusion - IVPB 1,000 units/hr TITR AGUILA 20 mls/hr Protocol Administration 1,000 UNITS/HR Morphine Sulfate 2 mg 04/15/17 00:51 Morphine Sulfate IVPUSH Q4H PRN PAIN LEVEL 4 - 6 ASSESSMENT/PLAN: Neuro: Neurologicaly intact currently Respiratory: --Pt currently tolerating 1LNC; wean as tolerated --Goaly >90% --CPAP/BiPAP at night for ANDRZEJ --CTA reviewed; no evidence of PE despite limited contrast visualization Cardiovascular: Acute Exacerbation of Systolic CHF --Repeat echo; last known EF 40-45% --Continue Coreg 25mg PO BID --Cardiology on board (Dr. 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 Daniel Phillips, DO - IM PGY-1 Visit type - Emergency Visit Emergency Visit: No - New Patient This patient is new to me today: Yes Date on this admission: 04/15/17 - Critical Care Critical Care patient: No
[2017-04-15] MEDS ORDERED: ASPIRIN COATED 81 MG TABLET.EC PO SCH (10:00)
--- NOTE | 2017-04-15 10:04 | PN ---
Progress Note, Physician Chief Complaint: events noted no chest pain or SOB no palpitations on Heparin Gtt - Current Medication List Current Medications: Active Medications Aspirin (Ecotrin -) 81 mg PO DAILY [facility] Last Admin: 04/15/17 09:34 Dose: 81 mg Carvedilol (Coreg -) 25 mg PO BID [facility] Last Admin: 04/15/17 09:34 Dose: 25 mg Heparin Sodium (Porcine) (Heparin -) 5,000 unit IVPUSH PRN PRN PRN Reason: Heparin Last Admin: 04/15/17 09:34 Dose: 5,000 unit Heparin Sodium (Porcine) (Heparin -) 1,000 unit IVPUSH PRN PRN PRN Reason: Heparin Heparin Sodium/Dextrose (Heparin Infusion -) 25,000 units in 500 mls @ 20 mls/ hr IVPB TITR AGUILA; 1,000 UNITS/HR PRN Reason: Protocol Last Admin: 04/15/17 09:34 Dose: 1,150 units/hr, 23 mls/hr Morphine Sulfate (Morphine Sulfate) 2 mg IVPUSH Q4H PRN PRN Reason: PAIN LEVEL 4 - 6 - Objective Vital Signs: Vital Signs Temperature 97.7 F 04/15/17 05:07 Pulse Rate 96 H 04/15/17 09:02 Respiratory Rate 31 H 04/15/17 09:02 Blood Pressure 134/95 04/15/17 09:02 O2 Sat by Pulse Oximetry (%) 100 04/15/17 08:30 Constitutional: Yes: No Distress Cardiovascular: Yes: Regular Rate and Rhythm Respiratory: Yes: Diminished, Rales (bases) Gastrointestinal: Yes: Normal Bowel Sounds, Soft, Abdomen, Obese. No: Tenderness Edema: Yes Edema: LLE: Trace, RLE: Trace Labs: CBC, BMP 04/15/17 06:40 04/15/17 06:40 INR, PTT INR 1.09 (0.82-1.09) 04/15/17 07:06 Problem List - Problems (1) CHF (congestive heart failure) Code(s): I50.9 - HEART FAILURE, UNSPECIFIED Qualifiers: Heart failure type: unspecified Heart failure chronicity: unspecified Qualified Code(s): I50.9 - Heart failure, unspecified (2) Chest pain Code(s): R07.9 - CHEST PAIN, UNSPECIFIED Qualifiers: Chest pain type: unspecified Qualified Code(s): R07.9 - Chest pain, unspecified (3) Obesity Code(s): E66.9 - OBESITY, UNSPECIFIED (4) NSTEMI (non-ST elevated myocardial infarction) Code(s): I21.4 - NON-ST ELEVATION (NSTEMI) MYOCARDIAL INFARCTION (5) Acute kidney injury Code(s): N17.9 - ACUTE KIDNEY FAILURE, UNSPECIFIED Assessment/Plan PLAN 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
--- NOTE | 2017-04-15 12:22 | PN ---
Teaching Attending Note Name of Resident: Matt Phillips ATTENDING PHYSICIAN STATEMENT I saw and evaluated the patient. I reviewed the resident's note and discussed the case with the resident. I agree with the resident's findings and plan as documented. SUBJECTIVE: Pt seen and examined in the ICU. Briefly, 47yo male with h/o HTN, nonischemic cardiomyopathy with severe LV dysfunction, h/o DVT, arterial thrombus noncompliant with medications including anticoagulation, morbid obesity, ANDRZEJ on home CPAP who presents with worsening shortness of breath. Reports substernal chest pain. CTA done in the ER which did not show evidence of PE but he had an allergic reaction requiring medrol and antihistamines. CT chest with diffuse ground glass opacities, bilateral effusions. OBJECTIVE: Last Vital Signs Temp Pulse Resp BP Pulse Ox 98.8 F 92 H 18 119/84 98 04/15/17 10:00 04/15/17 10:00 04/15/17 10:00 04/15/17 10:00 04/15/17 11:18 Intake & Output 04/12/17 04/13/17 04/14/17 04/15/17 23:59 23:59 23:59 23:59 Intake Total 40 Balance 40 Weight 104.326 kg 113.03 kg Gen: NAD at rest Heart: RRR Lung: decreased breath sounds at the bases Abd: soft, nontender Ext: no edema CBC, BMP 04/15/17 06:40 04/15/17 06:40 Active Medications Aspirin (Ecotrin -) 81 mg PO DAILY [facility] Last Admin: 04/15/17 09:34 Dose: 81 mg Carvedilol (Coreg -) 25 mg PO BID [facility] Last Admin: 04/15/17 09:34 Dose: 25 mg Heparin Sodium (Porcine) (Heparin -) 5,000 unit IVPUSH PRN PRN PRN Reason: Heparin Last Admin: 04/15/17 09:34 Dose: 5,000 unit Heparin Sodium (Porcine) (Heparin -) 1,000 unit IVPUSH PRN PRN PRN Reason: Heparin Heparin Sodium/Dextrose (Heparin Infusion -) 25,000 units in 500 mls @ 20 mls/ hr IVPB TITR AGUILA; 1,000 UNITS/HR PRN Reason: Protocol Last Admin: 04/15/17 09:34 Dose: 1,150 units/hr, 23 mls/hr Morphine Sulfate (Morphine Sulfate) 2 mg IVPUSH Q4H PRN PRN Reason: PAIN LEVEL 4 - 6 ASSESSMENT AND PLAN: Acute on Chronic Systolic Heart Failure Pulmonary HTN +Troponins likely from above Acute Kidney Injury h/o DVT/Arterial Thrombus HTN ANDRZEJ Noncompliance - hold off on lasix today as creatinine rising and pt clinically improving - monitor urine output, creatinine - will likely need maintenance dose of lasix/aldactone - beta leandra - KANDY/ARB when renal function stabilized - O2 to keep SpO2 >90% - continue anticoagulation for now for h/o DVT/thrombus - echocardiogram - cardiology evaluation - CPAP at night - can monitor on telemetry
--- NOTE | 2017-04-15 12:52 | CON.CARD ---
Consult Consult Specialty:: Cardiology Referred by:: Donna Patel MD Reason for Consultation:: CHF - History of Present Illness Chief Complaint: CHF History of Present Illness: 47yo male with h/o HTN, nonischemic cardiomyopathy with severe LV dysfunction and h/o failure, h/o DVT, arterial thromboembolism post embolectomy noncompliant with medications including anticoagulation, morbid obesity, ANDRZEJ on home CPAP presented with worsening shortness of breath and substernal chest pain. CTA done in the ER which did not show evidence of PE but he had an allergic reaction requiring medrol and antihistamines. CT chest with diffuse ground glass opacities, bilateral effusions. He denies chest pain, palpitations, orthopnea, PND or LE edema. - History Source History Provided By: Patient Limitations to Obtaining History: No Limitations - Past Medical History Cardio/Vascular: Yes: CAD, CHF, HTN Pulmonary: Yes: Pneumonia - Past Surgical History Past Surgical History: Yes: Hernia Repair, Laminectomy - Alcohol/Substance Use Hx Alcohol Use: No - Smoking History Smoking history: Never smoked Have you smoked in the past 12 months: No Aproximately how many cigarettes per day: 0 - Social History ADL: Independent Home Medications - Allergies Allergies/Adverse Reactions: Allergies Allergy/AdvReac Type Severity Reaction Status Date / Time Iodinated Contrast- Oral and Allergy Verified 04/15/17 09:43 IV Dye No Known Drug Allergies Allergy Verified 04/14/17 18:55 soy Allergy Verified 04/14/17 18:55 dust Allergy Unknown Uncoded 04/14/17 18:55 - Home Medications Home Medications: Ambulatory Orders NK [No Known Home Medication] 04/15/17 Family Disease History - Family Disease History Family Disease History: Diabetes: Mother, Heart Disease: Father ( 61) Review of Systems - Review of Systems Cardiovascular: reports: Edema, Shortness of Breath Vital Signs: Vital Signs Temperature 98.8 F 04/15/17 10:00 Pulse Rate 92 H 04/15/17 10:00 Respiratory Rate 18 04/15/17 10:00 Blood Pressure 119/84 04/15/17 10:00 O2 Sat by Pulse Oximetry (%) 98 04/15/17 11:18 Constitutional: Yes: No Distress, Calm Neck: Yes: Supple Respiratory: Yes: Regular, Diminished Gastrointestinal: Yes: Normal Bowel Sounds, Soft, Abdomen, Obese Cardiovascular: Yes: Regular Rate and Rhythm JVD: No Carotid Bruit: No Heart Sounds: Yes: S1, S2 Murmur: Yes: Systolic Murmur, Grade 1 Edema: Yes Edema: LLE: 1+, RLE: 1+ - Other Data Labs, Other Data: CBC, BMP 04/15/17 06:40 04/15/17 06:40 INR, PTT INR 1.09 (0.82-1.09) 04/15/17 07:06 Troponin, BNP 04/14/17 04/15/17 04/15/17 19:23 00:53 06:40 Troponin I 0.41 H D 0.34 H 0.24 H D B-Natriuretic Peptide 1851.17 H Troponin, BNP 04/14/17 04/15/17 04/15/17 19:23 00:53 06:40 Troponin I 0.41 H D 0.34 H 0.24 H D B-Natriuretic Peptide 1851.17 H ST @ 116 LAE, nonspec T changes Prior Cardiac Procedures: Cardiac Catheterization Ejection Fraction %: LVEF < 40 % Imaging - Results Cat Scan: Report Reviewed (Pulmonary edema and pleural effusion, bilateral gynecomastia) Problem List - Problems (1) Acute kidney injury Code(s): N17.9 - ACUTE KIDNEY FAILURE, UNSPECIFIED (2) Anticoagulant long-term use Code(s): Z79.01 - COLLET MAKER (CURRENT) USE OF ANTICOAGULANTS (3) Dilated cardiomyopathy Code(s): I42.0 - DILATED CARDIOMYOPATHY (4) HTN (hypertension) Code(s): I10 - ESSENTIAL (PRIMARY) HYPERTENSION Qualifiers: Hypertension type: essential hypertension Qualified Code(s): I10 - Essential (primary) hypertension (5) History of popliteal artery thrombosis Code(s): Z86.718 - PERSONAL HISTORY OF OTHER VENOUS THROMBOSIS AND EMBOLISM (6) Noncompliance Code(s): Z91.19 - PATIENT'S NONCOMPLIANCE W OTH MEDICAL TREATMENT AND REGIMEN (7) ANDRZEJ (obstructive sleep apnea) Code(s): G47.33 - OBSTRUCTIVE SLEEP APNEA (ADULT) (PEDIATRIC) (8) Shortness of breath Code(s): R06.02 - SHORTNESS OF BREATH (9) Acute on chronic systolic (congestive) heart failure Code(s): I50.23 - ACUTE ON CHRONIC SYSTOLIC (CONGESTIVE) HEART FAILURE Assessment/Plan 03/26/2015 Echo: Moderate dilated left ventricle with severe decreased LV systolic function, moderate LAE, mild MR, TR, [place], RVSP 40-50 mmHg 1. Acute on chronic systolic failure referable to medication noncompliance 2. Acute kidney injury referable to hemodynamic alterations 3. Non-ischemic dilated cardiomyopathy with h/o failure 4. HTN/HCVD 5. History of acute peripheral thromboembolism (cardioembolic) on Coumadin with subtherapeutic INR 6. ANDRZEJ on cpap 7. Exogenos obesity 8. Bilateral gynecomastia 9. 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 Resume Coreg 25 bid, Entresto 97/103 bid, change Aldactone to Inspra 50 qd ( given gynecomastia), diuresis with monitor diuretic response, renal function and electrolytes 2. F/u echo to assess ventricular and valve fxn 3. Resume heparin gtt-> coumadin per INR 4. cpap nightly 4. Emphasized importance of compliance with medications, diet and f/u. Thank you for consultative opportunity
[2017-04-15] MEDS ORDERED: VALSARTAN 160 MG TABLET (UD) PO SCH (14:15)
[2017-04-15] MEDS ORDERED: FUROSEMIDE 40 MG TABLET (FP) PO SCH (14:15)
--- NOTE | 2017-04-15 17:07 | EKG ---
Test Reason : Blood Pressure : / mmHG Vent. Rate : 116 BPM Atrial Rate : 116 BPM P-R Int : 162 ms QRS Dur : 084 ms QT Int : 342 ms P-R-T Axes : 043 029 071 degrees QTc Int : 475 ms SINUS TACHYCARDIA POSSIBLE LEFT ATRIAL ENLARGEMENT NONSPECIFIC T WAVE ABNORMALITY ABNORMAL ECG WHEN COMPARED WITH ECG OF 07-NOV-2015 20:01, VENT. RATE HAS INCREASED BY [address] NO LONGER ELEVATED IN LATERAL LEADS INVERTED T WAVES HAVE REPLACED NONSPECIFIC T WAVE ABNORMALITY IN LATERAL LEADS Confirmed by FLOYD CALVILLO MD ([id number]) on 04/15/2017 5:07:03 PM Referred By: Confirmed By:FLOYD CALVILLO MD
[2017-04-15] MEDS: EPLERENONE 25 MG TABLET PO SCH (17:10)
[2017-04-15] MEDS: WARFARIN NA 5 MG TABLET (UD) PO SCH (17:10)
[2017-04-15] MEDS ORDERED: FUROSEMIDE 20 MG TABLET (FP) PO ONE (17:12)
[2017-04-15] MEDS ORDERED: FUROSEMIDE 40 MG/4 ML INJECTABLE VIAL IVPUSH ONE (17:12)
[2017-04-15] MEDS ORDERED: MORPHINE SULFATE 10 MG/1 ML *VIAL IVPUSH PRN (21:18)
[2017-04-15] MEDS: SACUBITRIL/VALSARTAN 97 MG-103 MG TABLET PO SCH (23:40)
[2017-04-16 07:01] LABS: ANION GAP 9 (8-16); BLOOD UREA NITROGEN 24 mg/dL (7-18); CALCIUM 8.7 mg/dL (8.5-10.1); CHLORIDE 104 mmol/L (98-107); CO2 28 mmol/L (21-32); CREATININE 1.2 mg/dL (0.7-1.3); GLUCOSE,RANDOM 107 mg/dL (74-106); POTASSIUM 3.7 mmol/L (3.5-5.1); SODIUM 141 mmol/L (136-145)
[2017-04-16 07:08] LABS: INR 1.07 (0.82-1.09); PROTHROMBIN TIME (PATIENT) 12.1 SEC (9.98-11.88)
[2017-04-16] MEDS: HEPARIN INFUSION - 25,000 UNITS/500 ML INFUS.BAG IVPB SCH ×2 (09:00→22:54)
--- NOTE | 2017-04-16 09:31 | PN ---
Progress Note, Physician Chief Complaint: no chest pain or SOB no palpitations on Heparin Gtt - Current Medication List Current Medications: Active Medications Carvedilol (Coreg -) 25 mg PO BID [facility] Last Admin: 04/15/17 22:09 Dose: 25 mg Eplerenone (Eplerenone) 25 mg PO DAILY [facility] Last Admin: 04/15/17 17:10 Dose: 25 mg Furosemide (Lasix -) 20 mg PO DAILY [facility] Heparin Sodium (Porcine) (Heparin -) 1,000 unit IVPUSH PRN PRN PRN Reason: Heparin Heparin Sodium (Porcine) (Heparin -) 5,000 unit IVPUSH PRN PRN PRN Reason: Heparin Heparin Sodium/Dextrose (Heparin Infusion -) 25,000 units in 500 mls @ 20 mls/ hr IVPB TITR AGUILA; 1,000 UNITS/HR PRN Reason: Protocol Last Admin: 04/15/17 23:46 Dose: 1,000 units/hr, 20 mls/hr Morphine Sulfate (Morphine Injection -) 2 mg IVPUSH Q4H PRN PRN Reason: PAIN LEVEL 4 - 6 Warfarin Sodium (Coumadin -) 5 mg PO DAILY@1800 [facility] Last Admin: 04/15/17 17:10 Dose: 5 mg - Objective Vital Signs: Vital Signs Temperature 98.6 F 04/16/17 05:00 Pulse Rate 89 04/16/17 08:05 Respiratory Rate 17 04/16/17 05:00 Blood Pressure 114/71 04/16/17 05:00 O2 Sat by Pulse Oximetry (%) 96 04/16/17 08:05 Constitutional: Yes: No Distress Cardiovascular: Yes: Regular Rate and Rhythm Respiratory: Yes: CTA Bilaterally Gastrointestinal: Yes: Normal Bowel Sounds, Soft. No: Tenderness Edema: No Labs: CBC, BMP 04/15/17 06:40 04/16/17 05:05 INR, PTT INR 1.07 (0.82-1.09) 04/16/17 05:05 Problem List - Problems (1) CHF (congestive heart failure) Code(s): I50.9 - HEART FAILURE, UNSPECIFIED Qualifiers: Heart failure type: systolic Heart failure chronicity: unspecified Qualified Code(s): I50.20 - Unspecified systolic (congestive) heart failure (2) Chest pain Code(s): R07.9 - CHEST PAIN, UNSPECIFIED Qualifiers: Chest pain type: unspecified Qualified Code(s): R07.9 - Chest pain, unspecified (3) Obesity Code(s): E66.9 - OBESITY, UNSPECIFIED (4) NSTEMI (non-ST elevated myocardial infarction) Code(s): I21.4 - NON-ST ELEVATION (NSTEMI) MYOCARDIAL INFARCTION (5) Acute kidney injury Code(s): N17.9 - ACUTE KIDNEY FAILURE, UNSPECIFIED Assessment/Plan PLAN Pt had h/o arterial thrombosis in the past - 2013 admission Continue with CPAP on heparin Gtt Troponins trending down Cardiology eval noted Monitor renal function VTE prophylaxis-- Heparin Gtt
[2017-04-16] MEDS ORDERED: PT OWN MED DRAWER 7, Y5N ONE ×2 (09:36→21:05)
[2017-04-16] MEDS: EPLERENONE 25 MG TABLET PO SCH (09:42)
[2017-04-16] MEDS: FUROSEMIDE 20 MG TABLET (FP) PO SCH (09:42)
[2017-04-16] MEDS: CARVEDILOL 25 MG TABLET (FP) PO SCH ×2 (09:42→21:03)
[2017-04-16] MEDS: SACUBITRIL/VALSARTAN 97 MG-103 MG TABLET PO SCH ×2 (09:42→21:05)
[2017-04-16 09:54] LABS: HEMATOCRIT 40.2 % (35.4-49); HEMOGLOBIN 12.7 GM/dL (11.7-16.9); MCH 24.7 pg (25.7-33.7); MCHC 31.6 g/dl (32.0-35.9); MEAN PLT VOLUME 8.6 fl (7.5-11.1); PLATELET COUNT 261 K/MM3 (134-434); RBC 5.15 M/mm3 (4.00-5.60); RDW 16.5 % (11.9-15.9); WHITE BLOOD COUNT 16.6 K/mm3 (4.0-10.0)
--- NOTE | 2017-04-16 10:25 | PN ---
Progress Note, Physician History of Present Illness: Dyspnea on exertion and chest pressure resolved with diuresis, echo results confirm decrease in LV fxn while off meds. - Current Medication List Current Medications: Active Medications Carvedilol (Coreg -) 25 mg PO BID [facility] Last Admin: 04/16/17 09:42 Dose: 25 mg Eplerenone (Eplerenone) 25 mg PO DAILY [facility] Last Admin: 04/16/17 09:42 Dose: 25 mg Furosemide (Lasix -) 20 mg PO DAILY [facility] Last Admin: 04/16/17 09:42 Dose: 20 mg Heparin Sodium (Porcine) (Heparin -) 1,000 unit IVPUSH PRN PRN PRN Reason: Heparin Last Admin: 04/16/17 09:43 Dose: 1,000 unit Heparin Sodium (Porcine) (Heparin -) 5,000 unit IVPUSH PRN PRN PRN Reason: Heparin Heparin Sodium/Dextrose (Heparin Infusion -) 25,000 units in 500 mls @ 20 mls/ hr IVPB TITR AGUILA; 1,000 UNITS/HR PRN Reason: Protocol Last Admin: 04/16/17 09:00 Dose: 1,100 units/hr, 22 mls/hr Morphine Sulfate (Morphine Injection -) 2 mg IVPUSH Q4H PRN PRN Reason: PAIN LEVEL 4 - 6 Warfarin Sodium (Coumadin -) 5 mg PO DAILY@1800 [facility] Last Admin: 04/15/17 17:10 Dose: 5 mg - Objective Vital Signs: Vital Signs Temperature 98.6 F 04/16/17 05:00 Pulse Rate 89 04/16/17 08:05 Respiratory Rate 17 04/16/17 05:00 Blood Pressure 114/71 04/16/17 05:00 O2 Sat by Pulse Oximetry (%) 96 04/16/17 08:05 Constitutional: Yes: No Distress, Calm Neck: Yes: Supple Cardiovascular: Yes: Regular Rate and Rhythm Respiratory: Yes: Regular, CTA Bilaterally Gastrointestinal: Yes: Normal Bowel Sounds, Soft Edema: No Labs: CBC, BMP 04/16/17 05:45 04/16/17 05:05 INR, PTT INR 1.07 (0.82-1.09) 04/16/17 05:05 - ....Imaging EKG: Report Reviewed (Tele: SR) Problem List - Problems (1) Acute kidney injury Code(s): N17.9 - ACUTE KIDNEY FAILURE, UNSPECIFIED (2) Anticoagulant long-term use Code(s): Z79.01 - GARMENT ALTERATION EXAMINER (CURRENT) USE OF ANTICOAGULANTS (3) Dilated cardiomyopathy Code(s): I42.0 - DILATED CARDIOMYOPATHY (4) HTN (hypertension) Code(s): I10 - ESSENTIAL (PRIMARY) HYPERTENSION Qualifiers: Hypertension type: essential hypertension Qualified Code(s): I10 - Essential (primary) hypertension (5) History of popliteal artery thrombosis Code(s): Z86.718 - PERSONAL HISTORY OF OTHER VENOUS THROMBOSIS AND EMBOLISM (6) Noncompliance Code(s): Z91.19 - PATIENT'S NONCOMPLIANCE W OTH MEDICAL TREATMENT AND REGIMEN (7) ANDRZEJ (obstructive sleep apnea) Code(s): G47.33 - OBSTRUCTIVE SLEEP APNEA (ADULT) (PEDIATRIC) (8) Shortness of breath Code(s): R06.02 - SHORTNESS OF BREATH (9) Acute on chronic systolic (congestive) heart failure Code(s): I50.23 - ACUTE ON CHRONIC SYSTOLIC (CONGESTIVE) HEART FAILURE Assessment/Plan 03/26/2015 Echo: Moderate dilated left ventricle with severe decreased LV systolic function, moderate LAE, mild MR, TR, [place], RVSP 40-50 mmHg 11/20/2015 GBP scan: Normal RV and LV size and fxn, LVEF 60% (while on optimal meds) 04/15/2017 Echo: Mildly dilated LV with mod-severely decreased LV fxn, abnl LV compliance, mod MR, mild TR (off meds) 1. Acute on chronic systolic failure referable to medication noncompliance improving 2. Acute kidney injury referable to hemodynamic alterations 3. Non-ischemic dilated cardiomyopathy with h/o failure 4. HTN/HCVD 5. History of acute peripheral thromboembolism (cardioembolic) on Coumadin with subtherapeutic INR 6. ANDRZEJ on cpap 7. Exogenous obesity 8. Bilateral gynecomastia 9. 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 Continue Coreg 25 bid, Entresto 97/103 bid, Inspra 25 qd (given gynecomastia) , diuresis with monitor diuretic response, renal function and electrolytes 2. Continue heparin gtt-> coumadin per INR 3. cpap nightly 4. Emphasized importance of compliance with medications, diet and f/u.
[2017-04-16] MEDS: WARFARIN NA 5 MG TABLET (UD) PO SCH (18:23)
[2017-04-17 07:43] LABS: HEMATOCRIT 45.6 % (35.4-49); HEMOGLOBIN 14.3 GM/dL (11.7-16.9); MCH 24.6 pg (25.7-33.7); MCHC 31.3 g/dl (32.0-35.9); MEAN CELL VOLUME 78.6 fl (80-96); MEAN PLT VOLUME 8.4 fl (7.5-11.1); PLATELET COUNT 299 K/MM3 (134-434); RBC 5.81 M/mm3 (4.00-5.60); RDW 16.3 % (11.9-15.9); WHITE BLOOD COUNT 8.9 K/mm3 (4.0-10.0)
[2017-04-17 08:07] LABS: INR 1.07 (0.82-1.09); PROTHROMBIN TIME (PATIENT) 12.1 SEC (9.98-11.88)
[2017-04-17] MEDS ORDERED: PT OWN MED DRAWER 7, Y5N ONE (09:16)
[2017-04-17] MEDS: FUROSEMIDE 20 MG TABLET (FP) PO SCH (09:53)
[2017-04-17] MEDS: CARVEDILOL 25 MG TABLET (FP) PO SCH ×2 (09:53→20:59)
[2017-04-17] MEDS: EPLERENONE 25 MG TABLET PO SCH (09:54)
[2017-04-17] MEDS: SACUBITRIL/VALSARTAN 97 MG-103 MG TABLET PO SCH ×2 (09:54→21:00)
[2017-04-17 10:43] LABS: HEMATOCRIT 45.1 % (35.4-49); HEMOGLOBIN 14.1 GM/dL (11.7-16.9); MCH 24.5 pg (25.7-33.7); MCHC 31.4 g/dl (32.0-35.9); MEAN CELL VOLUME 78.1 fl (80-96); MEAN PLT VOLUME 8.3 fl (7.5-11.1); PLATELET COUNT 309 K/MM3 (134-434); RBC 5.77 M/mm3 (4.00-5.60); RDW 16.5 % (11.9-15.9); WHITE BLOOD COUNT 8.7 K/mm3 (4.0-10.0)
--- NOTE | 2017-04-17 11:29 | PN ---
Progress Note, Physician History of Present Illness: pt seen/ examined. chart reviewed. comfortable sitting in chair. feels better denies cp. dysnea improved. - Current Medication List Current Medications: Active Medications Carvedilol (Coreg -) 25 mg PO BID [facility] Last Admin: 04/17/17 09:53 Dose: 25 mg Eplerenone (Eplerenone) 25 mg PO DAILY [facility] Last Admin: 04/17/17 09:54 Dose: 25 mg Furosemide (Lasix -) 20 mg PO DAILY [facility] Last Admin: 04/17/17 09:53 Dose: 20 mg Heparin Sodium (Porcine) (Heparin -) 1,000 unit IVPUSH PRN PRN PRN Reason: Heparin Last Admin: 04/16/17 09:43 Dose: 1,000 unit Heparin Sodium (Porcine) (Heparin -) 5,000 unit IVPUSH PRN PRN PRN Reason: Heparin Heparin Sodium/Dextrose (Heparin Infusion -) 25,000 units in 500 mls @ 20 mls/ hr IVPB TITR AGUILA; 1,000 UNITS/HR PRN Reason: Protocol Last Admin: 04/16/17 22:54 Dose: 1,100 units/hr, 22 mls/hr Morphine Sulfate (Morphine Injection -) 2 mg IVPUSH Q4H PRN PRN Reason: PAIN LEVEL 4 - 6 Warfarin Sodium (Coumadin -) 5 mg PO DAILY@1800 [facility] Last Admin: 04/16/17 18:23 Dose: 5 mg Warfarin Sodium (Coumadin -) 5 mg PO ONCE@1800 ONE Stop: 04/17/17 18:01 - Objective Vital Signs: Vital Signs Temperature 98.0 F 04/17/17 08:06 Pulse Rate 69 04/17/17 08:06 Respiratory Rate 16 04/17/17 08:08 Blood Pressure 102/67 04/17/17 08:06 O2 Sat by Pulse Oximetry (%) 96 04/17/17 10:16 Constitutional: Yes: No Distress, Calm Eyes: Yes: Conjunctiva Clear Neck: Yes: Supple Cardiovascular: Yes: Regular Rate and Rhythm Respiratory: Yes: Diminished Gastrointestinal: Yes: Soft Edema: LLE: 1+, RLE: 1+ Neurological: Yes: Alert Psychiatric: Yes: Alert Labs: CBC, BMP 04/17/17 09:50 04/16/17 05:05 INR, PTT INR 1.07 (0.82-1.09) 04/17/17 06:30 - ....Imaging Chest X-ray: Report Reviewed Other: Other (echo - reviewed.) Problem List - Problems (1) Acute on chronic systolic (congestive) heart failure Code(s): I50.23 - ACUTE ON CHRONIC SYSTOLIC (CONGESTIVE) HEART FAILURE (2) Obesity Code(s): E66.9 - OBESITY, UNSPECIFIED (3) Acute kidney injury Code(s): N17.9 - ACUTE KIDNEY FAILURE, UNSPECIFIED Assessment/Plan better continue present care compliance stressed with pt extra coumadin today monitor inr cr better meds reviewed ambulate will follow. Discussed with Dr. Aguilar also today. time spend 25 min .
--- NOTE | 2017-04-17 12:12 | PN ---
Progress Note, Physician History of Present Illness: Dyspnea on exertion and chest pressure resolved with diuresis, echo results confirm decrease in LV fxn while off meds. - Current Medication List Current Medications: Active Medications Carvedilol (Coreg -) 25 mg PO BID [facility] Last Admin: 04/17/17 09:53 Dose: 25 mg Eplerenone (Eplerenone) 25 mg PO DAILY [facility] Last Admin: 04/17/17 09:54 Dose: 25 mg Furosemide (Lasix -) 20 mg PO DAILY [facility] Last Admin: 04/17/17 09:53 Dose: 20 mg Heparin Sodium (Porcine) (Heparin -) 1,000 unit IVPUSH PRN PRN PRN Reason: Heparin Last Admin: 04/16/17 09:43 Dose: 1,000 unit Heparin Sodium (Porcine) (Heparin -) 5,000 unit IVPUSH PRN PRN PRN Reason: Heparin Heparin Sodium/Dextrose (Heparin Infusion -) 25,000 units in 500 mls @ 20 mls/ hr IVPB TITR AGUILA; 1,000 UNITS/HR PRN Reason: Protocol Last Admin: 04/16/17 22:54 Dose: 1,100 units/hr, 22 mls/hr Morphine Sulfate (Morphine Injection -) 2 mg IVPUSH Q4H PRN PRN Reason: PAIN LEVEL 4 - 6 Warfarin Sodium (Coumadin -) 5 mg PO DAILY@1800 [facility] Last Admin: 04/16/17 18:23 Dose: 5 mg Warfarin Sodium (Coumadin -) 5 mg PO ONCE@1800 ONE Stop: 04/17/17 18:01 - Objective Vital Signs: Vital Signs Temperature 98.0 F 04/17/17 08:06 Pulse Rate 69 04/17/17 08:06 Respiratory Rate 16 04/17/17 08:08 Blood Pressure 102/67 04/17/17 08:06 O2 Sat by Pulse Oximetry (%) 96 04/17/17 10:16 Constitutional: Yes: No Distress, Calm Neck: Yes: Supple Cardiovascular: Yes: Regular Rate and Rhythm Respiratory: Yes: Regular, Diminished Gastrointestinal: Yes: Normal Bowel Sounds, Soft Edema: No Labs: CBC, BMP 04/17/17 09:50 04/16/17 05:05 INR, PTT INR 1.07 (0.82-1.09) 04/17/17 06:30 - ....Imaging Chest X-ray: Report Reviewed (Improved congestion) EKG: Report Reviewed (Tele: 8 beat NSVT) Problem List - Problems (1) Acute kidney injury Code(s): N17.9 - ACUTE KIDNEY FAILURE, UNSPECIFIED (2) Anticoagulant long-term use Code(s): Z79.01 - 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 OF ANTICOAGULANTS (3) Dilated cardiomyopathy Code(s): I42.0 - DILATED CARDIOMYOPATHY (4) HTN (hypertension) Code(s): I10 - ESSENTIAL (PRIMARY) HYPERTENSION Qualifiers: Hypertension type: essential hypertension Qualified Code(s): I10 - Essential (primary) hypertension (5) History of popliteal artery thrombosis Code(s): Z86.718 - PERSONAL HISTORY OF OTHER VENOUS THROMBOSIS AND EMBOLISM (6) Noncompliance Code(s): Z91.19 - PATIENT'S NONCOMPLIANCE W OTH MEDICAL TREATMENT AND REGIMEN (7) ANDRZEJ (obstructive sleep apnea) Code(s): G47.33 - OBSTRUCTIVE SLEEP APNEA (ADULT) (PEDIATRIC) (8) Shortness of breath Code(s): R06.02 - SHORTNESS OF BREATH (9) Acute on chronic systolic (congestive) heart failure Code(s): I50.23 - ACUTE ON CHRONIC SYSTOLIC (CONGESTIVE) HEART FAILURE (10) Non-sustained ventricular tachycardia Code(s): I47.2 - VENTRICULAR TACHYCARDIA Assessment/Plan 03/26/2015 Echo: Moderate dilated left ventricle with severe decreased LV systolic function, moderate LAE, mild MR, TR, [place], RVSP 40-50 mmHg 11/20/2015 GBP scan: Normal RV and LV size and fxn, LVEF 60% (while on optimal meds) 04/15/2017 Echo: Mildly dilated LV with mod-severely decreased LV fxn, abnl LV compliance, mod MR, mild TR (off meds) 1. Acute on chronic systolic failure referable to medication noncompliance improving 2. Acute kidney injury referable to hemodynamic alterations 3. Non-ischemic dilated cardiomyopathy with h/o failure 4. HTN/HCVD 5. History of acute peripheral thromboembolism (cardioembolic) on Coumadin with subtherapeutic INR 6. ANDRZEJ on cpap 7. Exogenous obesity 8. Bilateral gynecomastia 9. 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 Non-sustained VT PLAN: 1. Continue Coreg 25 bid, Entresto 97/103 bid, Inspra 25 qd (given gynecomastia) , oral diuresis with monitor diuretic response, renal function and electrolytes 2. Continue heparin gtt-> coumadin per INR 3. cpap nightly 4. Emphasized importance of compliance with medications, diet and f/u. 5. Repeat LV assessment while on optimal meds in 90 days to reassess LV fxn improvement
[2017-04-17] MEDS ORDERED: WARFARIN NA 5 MG TABLET (UD) PO ONE ×2 (18:00)
[2017-04-17] MEDS: WARFARIN NA 5 MG TABLET (UD) PO SCH (18:03)
[2017-04-17] MEDS: HEPARIN INFUSION - 25,000 UNITS/500 ML INFUS.BAG IVPB SCH ×2 (20:53→21:00)
[2017-04-18 06:53] LABS: HEMOGLOBIN 13.6 GM/dL (11.7-16.9); MCH 25.2 pg (25.7-33.7); MCHC 32.3 g/dl (32.0-35.9); MEAN CELL VOLUME 77.9 fl (80-96); MEAN PLT VOLUME 8.8 fl (7.5-11.1); PLATELET COUNT 290 K/MM3 (134-434); RBC 5.39 M/mm3 (4.00-5.60); RDW 17.1 % (11.9-15.9); WHITE BLOOD COUNT 7.7 K/mm3 (4.0-10.0)
[2017-04-18] MEDS ORDERED: PT OWN MED DRAWER 7, Y5N ONE ×2 (09:02→21:09)
[2017-04-18] MEDS: CARVEDILOL 25 MG TABLET (FP) PO SCH ×2 (09:05→21:38)
[2017-04-18] MEDS: FUROSEMIDE 20 MG TABLET (FP) PO SCH (09:05)
[2017-04-18] MEDS: SACUBITRIL/VALSARTAN 97 MG-103 MG TABLET PO SCH ×2 (09:06→21:38)
[2017-04-18] MEDS: EPLERENONE 25 MG TABLET PO SCH (09:08)
[2017-04-18 10:22] LABS: HEMATOCRIT 45.1 % (35.4-49); HEMOGLOBIN 14.1 GM/dL (11.7-16.9); MCH 24.6 pg (25.7-33.7); MCHC 31.3 g/dl (32.0-35.9); MEAN CELL VOLUME 78.8 fl (80-96); MEAN PLT VOLUME 7.8 fl (7.5-11.1); PLATELET COUNT 286 K/MM3 (134-434); RBC 5.73 M/mm3 (4.00-5.60); RDW 16.8 % (11.9-15.9); WHITE BLOOD COUNT 8.3 K/mm3 (4.0-10.0)
[2017-04-18 10:34] LABS: INR 1.3 (0.82-1.09); PROTHROMBIN TIME (PATIENT) 14.7 SEC (9.98-11.88)
[2017-04-18] MEDS ORDERED: WARFARIN NA 5 MG TABLET (UD) PO SCH (11:04)
--- NOTE | 2017-04-18 11:04 | PN ---
Progress Note, Physician Chief Complaint: no chest pain or SOB no palpitations on Heparin Gtt - Current Medication List Current Medications: Active Medications Carvedilol (Coreg -) 25 mg PO BID [facility] Last Admin: 04/18/17 09:05 Dose: 25 mg Eplerenone (Eplerenone) 25 mg PO DAILY [facility] Last Admin: 04/18/17 09:08 Dose: 25 mg Furosemide (Lasix -) 20 mg PO DAILY [facility] Last Admin: 04/18/17 09:05 Dose: 20 mg Heparin Sodium (Porcine) (Heparin -) 1,000 unit IVPUSH PRN PRN PRN Reason: Heparin Last Admin: 04/16/17 09:43 Dose: 1,000 unit Heparin Sodium (Porcine) (Heparin -) 5,000 unit IVPUSH PRN PRN PRN Reason: Heparin Heparin Sodium/Dextrose (Heparin Infusion -) 25,000 units in 500 mls @ 20 mls/ hr IVPB TITR AGUILA; 1,000 UNITS/HR PRN Reason: Protocol Last Admin: 04/17/17 21:00 Dose: Not Given Morphine Sulfate (Morphine Injection -) 2 mg IVPUSH Q4H PRN PRN Reason: PAIN LEVEL 4 - 6 Warfarin Sodium (Coumadin -) 5 mg PO DAILY@1800 [facility] Last Admin: 04/17/17 18:03 Dose: 5 mg - Objective Vital Signs: Vital Signs Temperature 98.1 F 04/18/17 06:43 Pulse Rate 68 04/18/17 06:43 Respiratory Rate 20 04/18/17 06:43 Blood Pressure 113/77 04/18/17 06:43 O2 Sat by Pulse Oximetry (%) 98 04/18/17 00:30 Constitutional: Yes: No Distress Cardiovascular: Yes: Regular Rate and Rhythm Respiratory: Yes: CTA Bilaterally Gastrointestinal: Yes: Normal Bowel Sounds, Soft. No: Tenderness Edema: No Labs: CBC, BMP 04/18/17 10:00 04/16/17 05:05 INR, PTT INR 1.30 (0.82-1.09) H 04/18/17 10:00 Problem List - Problems (1) CHF (congestive heart failure) Code(s): I50.9 - HEART FAILURE, UNSPECIFIED Qualifiers: Heart failure type: systolic Heart failure chronicity: unspecified Qualified Code(s): I50.20 - Unspecified systolic (congestive) heart failure (2) Chest pain Code(s): R07.9 - CHEST PAIN, UNSPECIFIED Qualifiers: Chest pain type: unspecified Qualified Code(s): R07.9 - Chest pain, unspecified (3) Obesity Code(s): E66.9 - OBESITY, UNSPECIFIED (4) NSTEMI (non-ST elevated myocardial infarction) Code(s): I21.4 - NON-ST ELEVATION (NSTEMI) MYOCARDIAL INFARCTION (5) Acute kidney injury Code(s): N17.9 - ACUTE KIDNEY FAILURE, UNSPECIFIED Assessment/Plan PLAN Pt had h/o arterial thrombosis in the past - 2013 admission Continue with CPAP on heparin Gtt Troponins trending down spoke with Institutional Research Coordinator increase Warfarin 7mg tonight VTE prophylaxis-- Heparin Gtt
--- NOTE | 2017-04-18 11:36 | PN ---
Progress Note, Physician History of Present Illness: Dyspnea on exertion and chest pressure resolved with diuresis, echo results confirm decrease in LV fxn while off meds, awaiting therapeutic INR. - Current Medication List Current Medications: Active Medications Carvedilol (Coreg -) 25 mg PO BID [facility] Last Admin: 04/18/17 09:05 Dose: 25 mg Eplerenone (Eplerenone) 25 mg PO DAILY [facility] Last Admin: 04/18/17 09:08 Dose: 25 mg Furosemide (Lasix -) 20 mg PO DAILY [facility] Last Admin: 04/18/17 09:05 Dose: 20 mg Heparin Sodium (Porcine) (Heparin -) 1,000 unit IVPUSH PRN PRN PRN Reason: Heparin Last Admin: 04/16/17 09:43 Dose: 1,000 unit Heparin Sodium (Porcine) (Heparin -) 5,000 unit IVPUSH PRN PRN PRN Reason: Heparin Heparin Sodium/Dextrose (Heparin Infusion -) 25,000 units in 500 mls @ 20 mls/ hr IVPB TITR AGUILA; 1,000 UNITS/HR PRN Reason: Protocol Last Admin: 04/17/17 21:00 Dose: Not Given Morphine Sulfate (Morphine Injection -) 2 mg IVPUSH Q4H PRN PRN Reason: PAIN LEVEL 4 - 6 Warfarin Sodium 5 mg/ Warfarin (Sodium 2 mg) 7 mg PO DAILY@1800 [facility] - Objective Vital Signs: Vital Signs Temperature 98.1 F 04/18/17 06:43 Pulse Rate 68 04/18/17 06:43 Respiratory Rate 20 04/18/17 06:43 Blood Pressure 113/77 04/18/17 06:43 O2 Sat by Pulse Oximetry (%) 98 04/18/17 00:30 Constitutional: Yes: No Distress, Calm Neck: Yes: Supple Cardiovascular: Yes: Regular Rate and Rhythm Respiratory: Yes: Regular, Diminished Gastrointestinal: Yes: Normal Bowel Sounds, Soft Edema: No Labs: CBC, BMP 04/18/17 10:00 04/16/17 05:05 INR, PTT INR 1.30 (0.82-1.09) H 04/18/17 10:00 - ....Imaging EKG: Report Reviewed (Tele: SR) Problem List - Problems (1) Acute kidney injury Code(s): N17.9 - ACUTE KIDNEY FAILURE, UNSPECIFIED (2) Anticoagulant long-term use Code(s): Z79.01 - [facility] (CURRENT) USE OF ANTICOAGULANTS (3) Dilated cardiomyopathy Code(s): I42.0 - DILATED CARDIOMYOPATHY (4) HTN (hypertension) Code(s): I10 - ESSENTIAL (PRIMARY) HYPERTENSION Qualifiers: Hypertension type: essential hypertension Qualified Code(s): I10 - Essential (primary) hypertension (5) History of popliteal artery thrombosis Code(s): Z86.718 - PERSONAL HISTORY OF OTHER VENOUS THROMBOSIS AND EMBOLISM (6) Noncompliance Code(s): Z91.19 - PATIENT'S NONCOMPLIANCE W OTH MEDICAL TREATMENT AND REGIMEN (7) ANDRZEJ (obstructive sleep apnea) Code(s): G47.33 - OBSTRUCTIVE SLEEP APNEA (ADULT) (PEDIATRIC) (8) Shortness of breath Code(s): R06.02 - SHORTNESS OF BREATH (9) Acute on chronic systolic (congestive) heart failure Code(s): I50.23 - ACUTE ON CHRONIC SYSTOLIC (CONGESTIVE) HEART FAILURE (10) Non-sustained ventricular tachycardia Code(s): I47.2 - VENTRICULAR TACHYCARDIA Assessment/Plan 03/26/2015 Echo: Moderate dilated left ventricle with severe decreased LV systolic function, moderate LAE, mild MR, TR, TX, RVSP 40-50 mmHg 11/20/2015 GBP scan: Normal RV and LV size and fxn, LVEF 60% (while on optimal meds) 04/15/2017 Echo: Mildly dilated LV with mod-severely decreased LV fxn, abnl LV compliance, mod MR, mild TR (off meds) 1. Acute on chronic systolic failure referable to medication noncompliance resolved 2. Acute kidney injury referable to hemodynamic alterations improving 3. Non-ischemic dilated cardiomyopathy with h/o failure 4. HTN/HCVD 5. History of acute peripheral thromboembolism (cardioembolic) on Coumadin with subtherapeutic INR 6. ANDRZEJ on cpap 7. Exogenous obesity 8. Bilateral gynecomastia 9. 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 Non-sustained VT PLAN: 1. Continue Coreg 25 bid, Entresto 97/103 bid, Inspra 25 qd (given gynecomastia) , oral diuresis with monitor diuretic response, renal function and electrolytes 2. Continue heparin gtt-> coumadin per INR 3. cpap nightly 4. Emphasized importance of compliance with medications, diet and f/u. 5. Repeat LV assessment while on optimal meds in 90 days to reassess LV fxn improvement
[2017-04-18] MEDS ORDERED: WARFARIN NA 5 MG TABLET (UD) ONE (17:51)
[2017-04-18] MEDS ORDERED: WARFARIN NA 2 MG TABLET (UD) ONE (17:51)
[2017-04-18] MEDS: HEPARIN INFUSION - 25,000 UNITS/500 ML INFUS.BAG IVPB SCH ×2 (17:56→21:38)
[2017-04-18] MEDS ORDERED: WARFARIN NA 5 MG, WARFARIN NA 2 MG PO SCH (18:00)
[2017-04-19 06:37] LABS: HEMATOCRIT 41.7 % (35.4-49); HEMOGLOBIN 13.4 GM/dL (11.7-16.9); MCH 25.1 pg (25.7-33.7); MEAN CELL VOLUME 78.3 fl (80-96); MEAN PLT VOLUME 8.3 fl (7.5-11.1); PLATELET COUNT 288 K/MM3 (134-434); RBC 5.33 M/mm3 (4.00-5.60); RDW 16.8 % (11.9-15.9); WHITE BLOOD COUNT 7.8 K/mm3 (4.0-10.0)
[2017-04-19 06:44] LABS: INR 1.97 (0.82-1.09); PROTHROMBIN TIME (PATIENT) 22.3 SEC (9.98-11.88)
[2017-04-19] MEDS: SACUBITRIL/VALSARTAN 97 MG-103 MG TABLET PO SCH (09:28)
[2017-04-19] MEDS: FUROSEMIDE 20 MG TABLET (FP) PO SCH (09:28)
[2017-04-19] MEDS: EPLERENONE 25 MG TABLET PO SCH (09:28)
[2017-04-19] MEDS: CARVEDILOL 25 MG TABLET (FP) PO SCH (09:28)
[2017-04-19] MEDS: HEPARIN INFUSION - 25,000 UNITS/500 ML INFUS.BAG IVPB SCH (09:30)
[2017-04-19 10:23] VITALS: BP 118/58; PULSE 78; TEMP 98.4
--- NOTE | 2017-04-19 11:54 | DS ---
Physical Examination Vital Signs: Vital Signs Temperature 98.4 F 04/19/17 10:00 Pulse Rate 78 04/19/17 10:00 Respiratory Rate 22 04/19/17 10:00 Blood Pressure 118/58 04/19/17 10:00 O2 Sat by Pulse Oximetry (%) 98 04/19/17 09:00 Labs: CBC, BMP 04/19/17 05:05 04/16/17 05:05 Discharge Summary Reason For Visit: ACUTE ON CHRONIC CHF Current Active Problems Acute on chronic systolic (congestive) heart failure (Acute) CHF (congestive heart failure) (Acute) Chest pain (Acute) NSTEMI (non-ST elevated myocardial infarction) (Acute) Non-sustained ventricular tachycardia (Acute) Obesity (Acute) Condition: Fair - Instructions - Home Medications Comprehensive Discharge Medication List: Ambulatory Orders NK [No Known Home Medication] 04/15/17
== END 2017-04-19 13:07 | disposition home or self-care (01) | DRG 281 ==
LOC: JER 18:53 → JERBED 22:26 → UNDOADMIN 04-15 00:03 → JERBED 04-15 00:03 → JICU 04-15 04:50 → JERBED 04-15 04:50 → J4W 04-15 21:08
PROVIDERS: ADMIT Internal Medicine; ATTEND Internal Medicine
DX: I11.0 Hypertensive heart disease with heart failure (principal); I21.A1 Myocardial infarction type 2; I24.8 Other forms of acute ischemic heart disease; N17.9 Acute kidney failure, unspecified; I47.2 Ventricular tachycardia; I50.23 Acute on chronic systolic (congestive) heart failure; E66.01 Morbid (severe) obesity due to excess calories; E78.5 Hyperlipidemia, unspecified; Z68.39 Body mass index [BMI] 39.0-39.9, adult; Z91.14 Patient's other noncompliance with medication regimen; Z86.718 Personal history of other venous thrombosis and embolism; G47.33 Obstructive sleep apnea (adult) (pediatric); I25.10 Atherosclerotic heart disease of native coronary artery without angina pectoris; Z87.891 Personal history of nicotine dependence; I27.20 Pulmonary hypertension, unspecified; Z79.01 Long term (current) use of anticoagulants; I42.8 Other cardiomyopathies; I36.1 Nonrheumatic tricuspid (valve) insufficiency; I34.0 Nonrheumatic mitral (valve) insufficiency; N62 Hypertrophy of breast
CPT/HCPCS: 36415; 36600; 71045-TC-FY; 71275-TC; 80048; 80053; 82375; 82550; 82553; 82803; 83050; 83735; 83880; 84100; 84484; 85025; 85027; 85379; 85610; 85730; 93005; 93010; 93306-TC; 93970-TC; 94660; 99285-25; J1644

== ENCOUNTER 2017-08-13 16:01 | Emergency (ER) | payer OTHER ==
--- NOTE | 2017-08-13 16:19 | PDOC ---
Rapid Medical Evaluation Time Seen by Provider: 08/13/17 16:15 Medical Evaluation: Allergies Allergy/AdvReac Type Severity Reaction Status Date / Time Iodinated Contrast- Oral and Allergy Verified 04/15/17 09:43 IV Dye No Known Drug Allergies Allergy Verified 04/14/17 18:55 soy Allergy Verified 04/14/17 18:55 dust Allergy Unknown Uncoded 04/14/17 18:55 I have performed a brief in-person evaluation of this patient. The patient presents with a chief complaint of: right foot swelling and pain. No trauma Pertinent physical exam findings: Pain with palpation of the tarsal bones without obvious deformities. 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 Discharge Disposition - Diagnosis Foot pain, right - Referrals - Patient Instructions - Post Discharge Activity
[2017-08-13 16:21] VITALS: BP 134/69; PULSE 90; TEMP 99; BMI 37.5
--- NOTE | 2017-08-13 17:03 | PDOC ---
History of Present Illness - General Chief Complaint: Pain, Acute Stated Complaint: PAIN Time Seen by Provider: 08/13/17 16:15 History Source: Patient Exam Limitations: No Limitations - History of Present Illness Initial Comments: 08/13/17 17:01 c/o one week pain to top of right foot worse when standing at work. pt denies trauma no fever no history of gout or DM. Past History - Past Medical History Allergies/Adverse Reactions: Allergies Allergy/AdvReac Type Severity Reaction Status Date / Time Iodinated Contrast- Oral and Allergy Verified 08/13/17 16:17 IV Dye No Known Drug Allergies Allergy Verified 08/13/17 16:17 soy Allergy Verified 08/13/17 16:17 dust Allergy Unknown Uncoded 08/13/17 16:17 Home Medications: Ambulatory Orders Carvedilol [Coreg -] 25 mg PO BID #60 tablet 04/19/17 Eplerenone 25 mg PO DAILY #30 tablet 04/19/17 Sacubitril/Valsartan [Entresto 97 mg-103 mg Tablet] 1 tab PO BID #60 tablet Warfarin Na [Coumadin -] 5 mg PO DAILY@1800 #30 tablet 04/19/17 Cardiac Disorders: Yes ([place] 07/2012) CVA: No COPD: No CHF: Yes Dementia: No Diabetes: No GI Disorders: Yes (REFLUX) Disorders: No HTN: Yes Hypercholesterolemia: Yes Liver Disease: No Seizures: No Thyroid Disease: No - Surgical History Abdominal Surgery: Yes (appendix) Appendectomy: Yes Cardiac Surgery: Yes (ANGIO) Neurologic Surgery: (SPINAL FUSION - 2013) Orthopedic Surgery: No - Immunization History Immunization Up to Date: Yes - Suicide/Smoking/Psychosocial Hx Smoking Status: No Smoking History: Never smoked Have you smoked in the past 12 months: No Number of Cigarettes Smoked Daily: 0 Cigars Per Day: 0 Hx Alcohol Use: Yes (occasionally) Drug/Substance Use Hx: No Substance Use Type: None Hx Substance Use Treatment: No *Physical Exam - Vital Signs Last Vital Signs Temp Pulse Resp BP Pulse Ox 99 F 90 16 134/69 99 08/13/17 16:15 08/13/17 16:15 08/13/17 16:15 08/13/17 16:15 08/13/17 16:15 - Physical Exam General Appearance: Yes: Nourished, Appropriately Dressed HEENT: positive: EOMI, GRISELDA Musculoskeletal: positive: Normal Inspection Extremity: positive: Normal Capillary Refill, Normal Inspection, Normal Range of Motion, Tender (over the forefoot, no redness, minimal swelling noted, soft tissue tenderness) Integumentary: positive: Normal Color, Dry, Warm Neurologic: positive: Fully Oriented, Alert, Normal Mood/Affect, Normal Response , Motor Strength 06/27 Medical Decision Making - Medical Decision Making 08/13/17 17:04 cc: foot pain xray done negative fracture pt refused meds now *DC/Admit/Observation/Transfer Diagnosis at time of Disposition: Foot pain, right - Discharge Dispostion Disposition: HOME Condition at time of disposition: Good - Referrals Referrals: Braulio Abernathy MD [Staff Physician] - - Patient Instructions Additional Instructions: apply heat every 2hrs for 20 minutes to the area of pain take aleve for pain 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
== END 2017-08-13 17:06 | disposition home or self-care (01) ==
LOC: JERFT 16:01
DX: M25.571 Pain in right ankle and joints of right foot (principal); I25.2 Old myocardial infarction; I25.10 Atherosclerotic heart disease of native coronary artery without angina pectoris; I10 Essential (primary) hypertension; I50.9 Heart failure, unspecified; E78.00 Pure hypercholesterolemia, unspecified
CPT/HCPCS: 73610-TC-RT-FY; 73630-TC-RT-FY; 99281-25

== ENCOUNTER 2018-12-31 15:45 | Inpatient (IN) | payer OTHER ==
--- NOTE | 2018-12-31 15:50 | PDOC ---
Rapid Medical Evaluation Medical Evaluation: Allergies Allergy/AdvReac Type Severity Reaction Status Date / Time Iodinated Contrast Media Allergy Verified 08/13/17 16:17 [Iodinated Contrast- Oral and IV Dye] No Known Drug Allergies Allergy Verified 08/13/17 16:17 soy Allergy Verified 08/13/17 16:17 dust Allergy Unknown Uncoded 08/13/17 16:17 I have performed a brief in-person evaluation of this patient. The patient presents with a chief complaint of: PMHx of HTN, systolic CHF, HLD, ANDRZEJ (on home CPAP), hay fever, prior anaphylactic reaction, recurrent DVTs (on Coumadin but noncompliant), NSTEMI c/o SOB from today along with productive cough; denies chest pain; patient is nonsmoker Pertinent physical exam findings: Slight tachynpea, lungs clear I have ordered the following: Labs, EKG, CXR The patient will proceed to the ED for further evaluation. 12/31/18 15:47
[2018-12-31 16:15] LABS: BASO % 0.7 % (0-2.0); HEMATOCRIT 44.7 % (35.4-49); HEMOGLOBIN 14.4 GM/dL (11.7-16.9); LYMPH % 14.6 % (8-40); MCH 25.5 pg (25.7-33.7); MCHC 32.3 g/dl (32.0-35.9); MEAN PLT VOLUME 8.4 fl (7.5-11.1); MONO % 10.3 % (3.8-10.2); NEUT % 72.4 % (42.8-82.8); PLATELET COUNT 266 K/MM3 (134-434); RBC 5.65 M/mm3 (4.00-5.60); RDW 15.7 % (11.9-15.9); WHITE BLOOD COUNT 9.4 K/mm3 (4.0-10.0)
[2018-12-31 16:16] LABS: VENOUS PC02 52.6 mmHg (38-52); VENOUS PH 7.35 (7.31-7.41)
[2018-12-31 16:18] LABS: VENOUS PO2 < 49 mmHg (28-48)
[2018-12-31 16:33] LABS: INR 0.93 (0.83-1.09)
[2018-12-31 16:35] LABS: ACTIVATED PTT 32.3 SECONDS (25.2-36.5)
[2018-12-31] MEDS ORDERED: NITROGLYCERIN SUBLINGUAL 1/150 0.4 MG TAB SL ONE (16:40)
[2018-12-31] MEDS ORDERED: CARVEDILOL 25 MG TABLET (FP) PO ONE (16:44)
[2018-12-31] MEDS ORDERED: SACUBITRIL/VALSARTAN 97 MG-103 MG TABLET PO STA (16:45)
[2018-12-31] MEDS ORDERED: CARVEDILOL 12.5 MG TABLET (FP) ONE (16:48)
[2018-12-31 16:50] LABS: ALBUMIN 3.8 g/dl (3.4-5.0); BILIRUBIN,TOTAL 0.4 mg/dL (0.2-1); BLOOD UREA NITROGEN 17.9 mg/dL (7-18); CREATININE 1.2 mg/dL (0.55-1.3); POTASSIUM 4.4 mmol/L (3.5-5.1); TOT PROT 6.7 g/dl (6.4-8.2)
[2018-12-31 16:52] LABS: N-TERMINAL BNP 2663.5 pg/ml (5-125)
[2018-12-31] MEDS ORDERED: ASPIRIN 325 MG TABLET PO ONE (17:21)
[2018-12-31] MEDS ORDERED: ASPIRIN 81 MG CHEWABLE TABLETS ONE (17:23)
--- NOTE | 2018-12-31 17:24 | PDOC ---
History of Present Illness - General Chief Complaint: Shortness of Breath Stated Complaint: DIFFCULTY BREATHING Time Seen by Provider: 12/31/18 15:47 History Source: Patient Exam Limitations: No Limitations - History of Present Illness Initial Comments: Pt is a 48 yo M, with PMH of HTN, HLD, sCHF (reduced EF), ANDRZEJ (night CPAP), recurrent DVT (not compliant with coumadin), NSTEMI, and morbid obesity, who is presenting with SOB since this morning. Pt states he has been non-compliant with his medications since his last admission (2017) and has not seen his doctors for over a year. Pt states the SOB is worse with exertion, but is not accompanied by any palpitations or SOB. Pt also endorses productive cough of white sputum, and intermittent headaches over the past 2 weeks. Pt denies any fevers/chills, headache, vision changes, syncope, chest pain, palpitations, orthopnea/PND, nausea/vomiting, abdominal pain, urinary symptoms, diarrhea/ constipation, or leg swelling. Allergies: NKDA PCP: Dr. Santiago Cards: Dr. Lawler Social: Pt denies any cigarette, alcohol, or drug use. Pt denies any recent travel or sick contacts. Surgical: no relevant history. Family: no relevant history. 12/31/18 18:36 Past History - Travel Traveled outside of the country in the last 30 days: No Close contact w/someone who was outside of country & ill: No - Past Medical History Allergies/Adverse Reactions: Allergies Allergy/AdvReac Type Severity Reaction Status Date / Time Iodinated Contrast Media Allergy Verified 12/31/18 15:50 [Iodinated Contrast- Oral and IV Dye] No Known Drug Allergies Allergy Verified 12/31/18 15:50 soy Allergy Verified 12/31/18 15:50 dust Allergy Unknown Uncoded 12/31/18 15:50 Home Medications: Ambulatory Orders Carvedilol [Coreg -] 25 mg PO BID #60 tablet 04/19/17 Eplerenone 25 mg PO DAILY #30 tablet 04/19/17 Sacubitril/Valsartan [Entresto 97 mg-103 mg Tablet] 1 tab PO BID #60 tablet Cardiac Disorders: Yes ([place] 07/2012) CVA: No COPD: No CHF: Yes Dementia: No Diabetes: No GI Disorders: Yes (REFLUX) Disorders: No HTN: Yes Hypercholesterolemia: Yes Liver Disease: No Seizures: No Thyroid Disease: No - Surgical History Abdominal Surgery: Yes (appendix) Appendectomy: Yes Cardiac Surgery: Yes (ANGIO) Neurologic Surgery: (SPINAL FUSION - 2014) Orthopedic Surgery: No - Immunization History Immunization Up to Date: Yes - Psycho Social/Smoking Cessation Hx Smoking Status: No Smoking History: Never smoked Have you smoked in the past 12 months: No Number of Cigarettes Smoked Daily: 0 Cigars Per Day: 0 Information on smoking cessation initiated: No Hx Alcohol Use: Yes (occasionally) Drug/Substance Use Hx: No Substance Use Type: None Hx Substance Use Treatment: No Cardiac Specific PMH - Complaint Specific PMHX Abdominal Aortic Aneurysm: No Angina: No Cardiac Arrhythmia: No Cardiac Stent: No GERD: No Myocardial Infarction: No Pacemaker: No Pulmonary Embolus: No Valvular Heart Disease: No Peripheral Vascular Disease: No Review of Systems - Review of Systems Able to Perform ROS?: Yes Is the patient limited Kinyarwanda proficient: No Constitutional: Yes: Weight Stable. No: Chills, Diaphoresis, Fever, Loss of Appetite, Malaise, Weakness HEENTM: No: Recent change in vision, Nose Congestion, Throat Pain, Throat Swelling, Difficulty Swallowing Respiratory: Yes: Cough, Shortness of Breath, SOB with Exertion, SOB at Rest, Productive cough. No: Orthopnea, Wheezing, Hemoptysis Cardiac (ROS): No: Chest Pain, Edema, Irregular Heart Rate, Lightheadedness, Palpitations, Syncope, Chest Tightness ABD/GI: No: Constipated, Diarrhea, Nausea, Poor Appetite, Poor Fluid Intake, Vomiting, Abdominal cramping : No: Burning, Dysuria, Frequency, Flank Pain, Pain, Urgency Musculoskeletal: No: Back Pain, Muscle Pain, Muscle Weakness Integumentary: No: Rash Neurological: No: Headache, Numbness, Weakness, Dizziness Psychiatric: No: Sleep Pattern Change, Change in Appetite Endocrine: No: Increased Urine, Change in Weight Hematologic/Lymphatic: No: Anemia, Blood Clots, Easy Bleeding, Easy Bruising All Other Systems: Reviewed and Negative *Physical Exam - Vital Signs Last Vital Signs Temp Pulse Resp BP Pulse Ox 98.4 F 100 H 20 165/113 H 98 12/31/18 17:10 12/31/18 17:10 12/31/18 17:10 12/31/18 17:10 12/31/18 17:10 - Physical Exam Comments: HTN (improved to 178/120 on exam), tachycardic 110s, pt afebrile. Pt with increased WOB, morbidly obese body habitus. Pt alert and oriented x3. 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 No midline spinal tenderness, step-offs, or crepitus. Head normocephalic, atraumatic. Eyes PERRLA, EOMI. Oropharynx without erythema or exudates, no LAD b/l. No nasal congestion. Hearing intact. Clear heart sounds, S1/S2, no JVD, b/l pedal edema, or heart murmur. Coarse breath sounds b/l posterior bases with scattered wheezing. No abdominal or CVA tenderness to palpation, no rebound, no guarding. Abdomen soft, non-distended, and with normoactive bowel sounds. Skin without jaundice or rash. 12/31/18 18:52 Heart Score/ECG Review - History History: Slightly suspicious - Electrocardiogram EKG: Non specific repolarization disturbance - Age Age: 45-65 - Risk Factors Risk Factors Heart Score: Yes Hx Hypercholesterolemia, Yes Hx Hypertension, Yes Hx Obesity Based on the list above the patient has:: >/=3 risk factors or Hx atherosclerotic disease - Troponin Troponin: >/=3x normal limit - Score Heart Score - Total: 6 ED Treatment Course - LABORATORY CBC & Chemistry Diagram: 12/31/18 16:03 12/31/18 16:03 - ADDITIONAL ORDERS Additional order review: Laboratory Results 12/31/18 12/31/18 12/31/18 16:03 16:03 16:03 PT with INR 11.00 INR 0.93 PTT (Actin FS) 32.3 VBG pH POC VBG pCO2 POC VBG pO2 VBG HCO3 VBG O2 Sat (Rufino) VBG Base Excess Sodium 138 Potassium 4.4 Chloride 106 Carbon Dioxide 29 Anion Gap 3 L BUN 17.9 Creatinine 1.2 Est GFR (CKD-EPI)AfAm 81.80 Est GFR (CKD-EPI)NonAf 70.58 Random Glucose 104 Calcium 9.0 Total Bilirubin 0.4 AST 43 H ALT 69 H Alkaline Phosphatase 77 Troponin I 0.25 H B-Natriuretic Peptide 2663.5 H Total Protein 6.7 Albumin 3.8 12/31/18 16:03 PT with INR INR PTT (Actin FS) VBG pH 7.35 POC VBG pCO2 52.6 H POC VBG pO2 < 49 H VBG HCO3 28.0 VBG O2 Sat (Rufino) 35.4 L VBG Base Excess 1.7 Sodium Potassium Chloride Carbon Dioxide Anion Gap BUN Creatinine Est GFR (CKD-EPI)AfAm Est GFR (CKD-EPI)NonAf Random Glucose Calcium Total Bilirubin AST ALT Alkaline Phosphatase Troponin I B-Natriuretic Peptide Total Protein Albumin 12/31/18 16:03 RBC 5.65 H MCV 79.0 L MCHC 32.3 RDW 15.7 MPV 8.4 Neutrophils % 72.4 Lymphocytes % 14.6 D Monocytes % 10.3 H Eosinophils % 2.0 Basophils % 0.7 - Medications Given in the ED: ED Medications Discontinued Medications Generic Name Dose Route Start Last Admin Trade Name Freq PRN Reason Stop Dose Admin Aspirin 325 mg 12/31/18 17:21 12/31/18 17:25 Asa - PO 12/31/18 17:22 325 mg ONCE ONE Administration Carvedilol 25 mg 12/31/18 16:44 12/31/18 16:49 Coreg - PO 12/31/18 16:45 25 mg ONCE ONE Administration Nitroglycerin 0.4 mg 12/31/18 16:40 12/31/18 16:47 Nitrostat - SL 12/31/18 16:41 0.4 mg ONCE ONE Administration Sacubitril/Valsartan 1 tab 12/31/18 16:45 12/31/18 17:05 Entresto 97 Mg-103 Mg Tablet PO 12/31/18 16:46 1 tab ONCE STA Administration Medical Decision Making - Medical Decision Making Pt was seen at bedside, also will be seen by attending Dr. Monroe. Pt presenting with dyspnea x1 day and non-productive cough, likely 2/2 medication non- compliance. Will evaluate for CHF exacerbation vs ACS vs pleural effusions vs pneumonia. Pt tachycardia improving with medication, not hypoxic, less likely PE. Provided 1 SL NG and home BP meds (25 mg coreg, entresto) for improvement of HTN and dyspnea. Will continue to reassess pt and monitor for symptomatic improvement. ECG: Sinus tachycardia (HR 10, CT 174, QTc 474). TWIs V6 and aVL with no reciprocal change. No significant changes from prior ECG (04/14/2017). CBC WNL CMP generally WNL BNP 2663, troponin 0.25 -- similar to prior admissions with no new EKG changes BP improving to 140s/110s. PT states breathing is improved and headache resolved. Pt should stay for inpatient tele monitoring and evaluation by cardiology. Pt needs to be re-started on HTN medications and AC due to CVA and CO risk. Pt admitted to tele to hospitalist team (Dr. Soto). 12/31/18 18:53 Discharge - Discharge Information Problems reviewed: Yes Clinical Impression/Diagnosis: NSTEMI (non-ST elevated myocardial infarction), ANDRZEJ (obstructive sleep apnea) HTN (hypertension) Qualifiers: Hypertension type: essential hypertension Qualified Code(s): I10 - Essential ( primary) hypertension CHF (congestive heart failure) Qualifiers: Heart failure type: systolic Heart failure chronicity: unspecified Qualified Code(s): I50.20 - Unspecified systolic (congestive) heart failure Condition: Stable - Admission Yes - Follow up/Referral - Patient Discharge Instructions - Post Discharge Activity
--- NOTE | 2018-12-31 17:29 | PDOC ---
Attending Attestation - Resident Resident Name: AnamariaMiri - ED Attending Attestation I have performed the following: I have examined & evaluated the patient, The case was reviewed & discussed with the resident, I agree w/resident's findings & plan - HPI HPI: 01/01/19 09:54 Pt is a 48 yo M, with PMH of HTN, HLD, sCHF (reduced EF), ANDRZEJ (night CPAP), recurrent DVT (not compliant with coumadin), NSTEMI, and morbid obesity, who is presenting with exertional SOB since this morning. Pt states he has been non- compliant with his medications since his last admission (2018) and has not seen his doctors for over a year. +productive cough of white sputum, and intermittent headaches over the past 2 weeks. Pt denies any fevers/chills, headache, vision changes, syncope, chest pain, palpitations, orthopnea/PND, nausea/vomiting, abdominal pain, urinary symptoms, diarrhea/constipation, or leg swelling. - Physicial Exam PE: 12/31/18 17:26 Agree with the resident's HPI and PE as documented in the electronic medical record. NAD, well appearing, EOMI, PERRL, neck supple.no respiratory distress. lungs clear. regular rate/rhythm. LOPEZ x4, no focal neuro deficits. No peripheral edema. normal color for ethnicity, WWP. 01/01/19 09:54 - Medical Decision Making 12/31/18 17:27 Vital Signs Temp Pulse Resp BP Pulse Ox 98.4 F 100 H 20 165/113 H 98 12/31/18 17:10 12/31/18 17:10 12/31/18 17:10 12/31/18 17:10 12/31/18 17:10 Vital signs noted for significant hypertension, mild tachycardia. No systemic findings, afebrile. Given meds that he has been noncompliant on including his home BP meds. Has slowly come down to 165/113. Given nitro, will continue to monitor. No indication for drip at this time. EKG with nonspecific T wave findings/sinus tachycardia. Troponin elevated 0.25, elevated BNP, could also be ACS vs CHF. he does display some evidence of endorgan damage secondary to her poorly managed/compliance with hypertension. CXR with cardiomegaly. Will admit to medical team/telemetry for further management. Cardiology consultation with on-call Maykel Cards 12/31/18 17:28 12/31/18 17:30 01/01/19 09:55 Heart Score/ECG Review #1 ECG reviewed & interpreted by me at: 15:50 General ECG Interpretation: Sinus Rhythm, Normal Intervals Compared to previous ECG there are: No significant change 12/31/18 17:27 EKG sinus tachycardia at 103 bpm, no interval abnormalities, narrow QRS, ST and T wave segments and morphology normal. Nonspecific T wave abnormalities with TWI in V6/lateral leads I-AVL, nonspecific TWF in inferior leads.
--- NOTE | 2018-12-31 17:38 | CON.CARD ---
Consult Consult Specialty:: Cardiology Referred by:: Laura Patel MD Reason for Consultation:: Recurrent CHF - History of Present Illness Chief Complaint: Dyspnea, cough History of Present Illness: 48 yo male with h/o HTN, nonischemic cardiomyopathy with severe LV dysfunction and h/o failure, h/o DVT, arterial thromboembolism post embolectomy noncompliant with medications including anticoagulation, morbid obesity, ANDRZEJ on home CPAP presented with worsening shortness of breath, cough, orthopna and elevated BP 218/124. Running out of meds over last several months, has been using Alleve for LBP, denies diet indiscretion. He denies chest pain, palpitations, PND or LE edema. Last office visit 05/21/2017 - History Source History Provided By: Patient Limitations to Obtaining History: No Limitations - Past Medical History Cardio/Vascular: Yes: CAD, CHF, HTN Pulmonary: Yes: Pneumonia - Past Surgical History Past Surgical History: Yes: Hernia Repair, Laminectomy - Alcohol/Substance Use Hx Alcohol Use: Yes (occasionally) - Smoking History Smoking history: Never smoked Have you smoked in the past 12 months: No Aproximately how many cigarettes per day: 0 - Social History ADL: Independent Home Medications - Allergies Allergies/Adverse Reactions: Allergies Allergy/AdvReac Type Severity Reaction Status Date / Time Iodinated Contrast Media Allergy Verified 12/31/18 15:50 [Iodinated Contrast- Oral and IV Dye] No Known Drug Allergies Allergy Verified 12/31/18 15:50 soy Allergy Verified 12/31/18 15:50 dust Allergy Unknown Uncoded 12/31/18 15:50 - Home Medications Home Medications: Ambulatory Orders Carvedilol [Coreg -] 25 mg PO BID #60 tablet 04/19/17 Eplerenone 25 mg PO DAILY #30 tablet 04/19/17 Sacubitril/Valsartan [Entresto 97 mg-103 mg Tablet] 1 tab PO BID #60 tablet Review of Systems - Review of Systems Cardiovascular: reports: Edema, Shortness of Breath Respiratory: reports: Orthopnea, SOB Vital Signs: Vital Signs Temperature 98.4 F 12/31/18 17:10 Pulse Rate 100 H 12/31/18 17:10 Respiratory Rate 20 12/31/18 17:10 Blood Pressure 165/113 H 12/31/18 17:10 O2 Sat by Pulse Oximetry (%) 98 12/31/18 17:10 Constitutional: Yes: No Distress, Calm Neck: Yes: Supple Respiratory: Yes: Regular, Diminished Gastrointestinal: Yes: Soft, Hypoactive Bowel Sounds Cardiovascular: Yes: Regular Rate and Rhythm, Tachycardia JVD: No Carotid Bruit: No Heart Sounds: Yes: S1, S2 Murmur: Yes: Systolic Murmur, Grade 1 Edema: Yes Edema: LLE: Trace, RLE: Trace - Other Data Labs, Other Data: CBC, BMP 12/31/18 16:03 12/31/18 16:03 INR, PTT INR 0.93 (0.83-1.09) 12/31/18 16:03 Troponin, BNP 12/31/18 16:03 Troponin I 0.25 H B-Natriuretic Peptide 2663.5 H Troponin, BNP 12/31/18 16:03 Troponin I 0.25 H B-Natriuretic Peptide 2663.5 H ST @ 103 LAE nonspec T wave abnl Prior Cardiac Procedures: Cardiac Catheterization Ejection Fraction %: LVEF < 40 % Imaging - Results Chest X-ray: Report Reviewed (CHF) Problem List - Problems (1) Subendocardial ischemia Code(s): I24.8 - OTHER FORMS OF ACUTE ISCHEMIC HEART DISEASE (2) Hypertensive cardiomyopathy Code(s): I11.9 - HYPERTENSIVE HEART DISEASE WITHOUT HEART FAILURE; I43 - CARDIOMYOPATHY IN DISEASES CLASSIFIED ELSEWHERE Qualifiers: Heart failure presence: with heart failure Qualified Code(s): I11.0 - Hypertensive heart disease with heart failure; I43 - Cardiomyopathy in diseases classified elsewhere (3) Acute on chronic systolic (congestive) heart failure Code(s): I50.23 - ACUTE ON CHRONIC SYSTOLIC (CONGESTIVE) HEART FAILURE (4) Dilated cardiomyopathy Code(s): I42.0 - DILATED CARDIOMYOPATHY (5) Noncompliance Code(s): Z91.19 - PATIENT'S NONCOMPLIANCE W OTH MEDICAL TREATMENT AND REGIMEN (6) ANDRZEJ (obstructive sleep apnea) Code(s): G47.33 - OBSTRUCTIVE SLEEP APNEA (ADULT) (PEDIATRIC) (7) Shortness of breath Code(s): R06.02 - SHORTNESS OF BREATH Assessment/Plan 08/13/2017 Echo: Normal LV size with mild decreased LV fxn, mild MRm TR 03/26/2015 Echo: Moderate dilated left ventricle with severe decreased LV systolic function, moderate LAE, mild MR, TR, NV, RVSP 40-50 mmHg 11/20/2015 GBP scan: Normal RV and LV size and fxn, LVEF 60% (while on optimal meds) 04/15/2017 Echo: Mildly dilated LV with mod-severely decreased LV fxn, abnl LV compliance, mod MR, mild TR (off meds) 1. Acute on chronic systolic failure with subendocardial ischemia referable to medication noncompliance and Alleve use 2. Non-ischemic dilated cardiomyopathy with h/o failure 3. HTN/HCVD 4. History of acute peripheral thromboembolism (cardioembolic) on Coumadin with subtherapeutic INR 5. ANDRZEJ on cpap 6. Exogenous obesity 7. Bilateral gynecomastia 8. 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 CKD PLAN: 1. Resume Coreg 25 bid, Entresto 97/103 bid, Inspra 50 qd (given gynecomastia) as hemodynamics tolerate, IV diuresis with monitor diuretic response, renal function and electrolytes 2. Resume coumadin 5 qd per INR 3. Cpap nightly, trend trops to document peak 4. Emphasized importance of compliance with medications, diet and f/u. 5. Patient had recovery of systolic function while on optimal medications, f/u echocardiogram results to re-evaluate systolic function as he has been noncompliant with meds, if LVEF>40% would then change Entresto to Valsartan or Micardis. 6. Thank you for consultative opportunity
[2018-12-31] MEDS ORDERED: WARFARIN NA 5 MG TABLET (UD) PO ONE (19:00)
--- NOTE | 2018-12-31 19:33 | HP ---
Admitting History and Physical - Admission History of Present Illness: This is a 48 y/o man with a PMHx of HTN, HLD, sCHF (reduced EF), ANDRZEJ (night CPAP ), Recurrent DVTs (not compliant with Coumadin), NSTEMI, Severe Obesity. Who presents to the ED with SOB x am. Patient reports that he has been non- compliant with his medications since his last admission (2017) and has not seen his doctors for over a year. Patient reports that the SOB is worse on exertion, but is not accompanied by any palpitations or CP. Patient reports having a productive cough of white sputum, and intermittent headaches over the past 2 weeks. Patient denies fevers, chills, dizziness, blurred vision, CP, palpitations, orthopnea/PND, abdominal pain, N/V/D, constipation, dysuria. History Source: Patient Limitations to Obtaining History: No Limitations - Past Medical History Cardiovascular: Yes: CAD, CHF, HTN Pulmonary: Yes: Pneumonia - Past Surgical History Past Surgical History: Yes: Hernia Repair, Laminectomy - Smoking History Smoking history: Never smoked Have you smoked in the past 12 months: No Aproximately how many cigarettes per day: 0 If you are a former smoker, when did you quit?: 20years - Alcohol/Substance Use Hx Alcohol Use: Yes (occasionally) History of Substance Use: reports: None - Social History Do you think of yourself as: Straight/Heterosexual ADL: Independent History of Recent Travel: No Home Medications - Allergies Allergies/Adverse Reactions: Allergies Allergy/AdvReac Type Severity Reaction Status Date / Time Iodinated Contrast Media Allergy Verified 12/31/18 15:50 [Iodinated Contrast- Oral and IV Dye] No Known Drug Allergies Allergy Verified 12/31/18 15:50 soy Allergy Verified 12/31/18 15:50 dust Allergy Unknown Uncoded 12/31/18 15:50 - Home Medications Home Medications: Ambulatory Orders Carvedilol [Coreg -] 25 mg PO BID #60 tablet 04/19/17 Eplerenone 25 mg PO DAILY #30 tablet 04/19/17 Sacubitril/Valsartan [Entresto 97 mg-103 mg Tablet] 1 tab PO BID #60 tablet Family Medical History Family History: Unable to Obtain Review of Systems - Review of Systems Constitutional: reports: No Symptoms Eyes: reports: No Symptoms HENT: reports: No Symptoms Neck: reports: No Symptoms Cardiovascular: reports: Shortness of Breath Respiratory: reports: Cough, SOB, SOB on Exertion Gastrointestinal: reports: No Symptoms Genitourinary: reports: No Symptoms Breasts: reports: No Symptoms Reported Musculoskeletal: reports: No Symptoms Integumentary: reports: No Symptoms Neurological: reports: Headache Endocrine: reports: No Symptoms Hematology/Lymphatic: reports: No Symptoms Psychiatric: reports: No Symptoms Pain Intensity: 4 Physical Examination Vital Signs: Vital Signs Temperature 97.8 F 12/31/18 18:19 Pulse Rate 91 H 12/31/18 18:19 Respiratory Rate 22 H 12/31/18 18:19 Blood Pressure 159/102 H 12/31/18 18:19 O2 Sat by Pulse Oximetry (%) 98 12/31/18 18:19 Constitutional: Yes: Well Nourished, No Distress, Calm Eyes: Yes: WNL, Conjunctiva Clear, EOM Intact, PERRL HENT: Yes: WNL, Atraumatic, Normocephalic Neck: Yes: WNL, Supple, Trachea Midline Cardiovascular: Yes: Regular Rate and Rhythm, Murmur (systolic), S1, S2 Respiratory: Yes: WNL, Regular, CTA Bilaterally Gastrointestinal: Yes: WNL, Normal Bowel Sounds, Soft, Abdomen, Obese ...Rectal Exam: Yes: Deferred Renal/: Yes: WNL Breast(s): Yes: WNL Musculoskeletal: Yes: WNL Extremities: Yes: WNL Edema: Yes Edema: LLE: Trace, RLE: Trace Peripheral Pulses WNL: Yes Integumentary: Yes: Tattoos Neurological: Yes: WNL, Alert, Oriented, Cran Nerves II-XII Intact ...Motor Strength: WNL Psychiatric: Yes: WNL, Alert, Oriented Labs: CBC, BMP 12/31/18 16:03 12/31/18 16:03 Laboratory Results - last 24 hr 12/31/18 12/31/18 12/31/18 16:03 16:03 16:03 WBC 9.4 RBC 5.65 H Hgb 14.4 Hct 44.7 MCV 79.0 L MCH 25.5 L MCHC 32.3 RDW 15.7 Plt Count 266 MPV 8.4 Absolute Neuts (auto) 6.8 Neutrophils % 72.4 Lymphocytes % 14.6 D Monocytes % 10.3 H Eosinophils % 2.0 Basophils % 0.7 Nucleated RBC % 0 PT with INR INR PTT (Actin FS) VBG pH 7.35 POC VBG pCO2 52.6 H POC VBG pO2 < 49 H VBG HCO3 28.0 VBG O2 Sat (Rufino) 35.4 L VBG Base Excess 1.7 Sodium 138 Potassium 4.4 Chloride 106 Carbon Dioxide 29 Anion Gap 3 L BUN 17.9 Creatinine 1.2 Est GFR (CKD-EPI)AfAm 81.80 Est GFR (CKD-EPI)NonAf 70.58 Random Glucose 104 Calcium 9.0 Total Bilirubin 0.4 AST 43 H ALT 69 H Alkaline Phosphatase 77 Troponin I B-Natriuretic Peptide Total Protein 6.7 Albumin 3.8 12/31/18 12/31/18 12/31/18 16:03 16:03 21:30 WBC RBC Hgb Hct MCV MCH MCHC RDW Plt Count MPV Absolute Neuts (auto) Neutrophils % Lymphocytes % Monocytes % Eosinophils % Basophils % Nucleated RBC % PT with INR 11.00 INR 0.93 PTT (Actin FS) 32.3 VBG pH POC VBG pCO2 POC VBG pO2 VBG HCO3 VBG O2 Sat (Rufino) VBG Base Excess Sodium Potassium Chloride Carbon Dioxide Anion Gap BUN Creatinine Est GFR (CKD-EPI)AfAm Est GFR (CKD-EPI)NonAf Random Glucose Calcium Total Bilirubin AST ALT Alkaline Phosphatase Troponin I 0.25 H 0.21 H B-Natriuretic Peptide 2663.5 H Total Protein Albumin Current Medications Generic Name Dose Route Start Last Admin Trade Name Freq PRN Reason Stop Dose Admin Carvedilol 25 mg 12/31/18 22:00 12/31/18 21:00 Coreg - PO 25 mg BID AGUILA Administration Eplerenone 25 mg 01/01/19 08:00 Eplerenone PO DAILY@0800 AGUILA Furosemide 40 mg 01/01/19 06:00 Lasix Injection - IVPUSH BIDLASIX AGUILA Sacubitril/Valsartan 1 tab 12/31/18 22:00 12/31/18 21:00 Entresto 49 Mg-51 Mg Tablet PO Not Given BID AGUILA Imaging - Results Chest X-ray: Image Reviewed EKG: Image Reviewed Problem List - Problems (1) Acute on chronic systolic (congestive) heart failure Code(s): I50.23 - ACUTE ON CHRONIC SYSTOLIC (CONGESTIVE) HEART FAILURE (2) Shortness of breath Code(s): R06.02 - SHORTNESS OF BREATH (3) Elevated troponin Code(s): R79.89 - OTHER SPECIFIED ABNORMAL FINDINGS OF BLOOD CHEMISTRY (4) Hypertensive cardiomyopathy Code(s): I11.9 - HYPERTENSIVE HEART DISEASE WITHOUT HEART FAILURE; I43 - CARDIOMYOPATHY IN DISEASES CLASSIFIED ELSEWHERE Qualifiers: Heart failure presence: with heart failure Qualified Code(s): I11.0 - Hypertensive heart disease with heart failure; I43 - Cardiomyopathy in diseases classified elsewhere (5) Noncompliance Code(s): Z91.19 - PATIENT'S NONCOMPLIANCE W OTH MEDICAL TREATMENT AND REGIMEN (6) ANDRZEJ (obstructive sleep apnea) Code(s): G47.33 - OBSTRUCTIVE SLEEP APNEA (ADULT) (PEDIATRIC) (7) Severe obesity (BMI >= 40) Code(s): E66.01 - MORBID (SEVERE) OBESITY DUE TO EXCESS CALORIES Assessment/Plan This is a 48 y/o man with a PMHx of HTN, HLD, sCHF (reduced EF), ANDRZEJ (night CPAP ), recurrent DVT (not compliant with coumadin), NSTEMI, Severe Obesity. Admitted for Acute on Chronic CHF Exacerbation, Elevated Troponin for further evaluation of their emergent condition. Plan: Admit Telemetry Cardiac monitoring Serial Enzymes elevated x1, likely due to Demand Ischemia vs ACS, will continue to trend Cardiology following Echo Continue home meds Strict INOs Daily weights Chest Xray- reviewed EKG- reviewed CPAP HS for ANDRZEJ, settings 10/5/21% Monitor CBC, BMP FEN- Fluid Restriction 1L, Replete lytes prn, Low Na Diet DVT ppx- OOB, SCDs Code Status: Full Code Dispo: Requires Inpatient Care Visit type - Emergency Visit Emergency Visit: Yes ED Registration Date: 12/31/18 Care time: The patient presented to the Emergency Department on the above date and was hospitalized for further evaluation of their emergent condition. - New Patient This patient is new to me today: Yes Date on this admission: 12/31/18 - Critical Care Critical Care patient: No
[2018-12-31] MEDS ORDERED: FUROSEMIDE 40 MG/4 ML INJECTABLE VIAL IVPUSH ONE (19:35)
[2018-12-31] MEDS: CARVEDILOL 25 MG TABLET (FP) PO SCH (21:00)
[2018-12-31] MEDS: SACUBITRIL/VALSARTAN 49 MG-51 MG TABLET PO SCH (21:00)
[2019-01-01] MEDS: FUROSEMIDE 40 MG/4 ML INJECTABLE VIAL IVPUSH SCH ×2 (05:07→13:43)
[2019-01-01 07:07] LABS: BASO % 0.5 % (0-2.0); EOS % 4.1 % (0-4.5); HEMOGLOBIN 14.8 GM/dL (11.7-16.9); LYMPH % 21.3 % (8-40); MCH 25.7 pg (25.7-33.7); MCHC 32.9 g/dl (32.0-35.9); MEAN PLT VOLUME 8.4 fl (7.5-11.1); MONO % 10.3 % (3.8-10.2); NEUT % 63.8 % (42.8-82.8); PLATELET COUNT 257 K/MM3 (134-434); RBC 5.76 M/mm3 (4.00-5.60); RDW 15.9 % (11.9-15.9)
[2019-01-01 07:20] LABS: INR 1.02 (0.83-1.09)
[2019-01-01 07:34] LABS: CHOLESTEROL 182 mg/dL (50-200); HDL CHOLESTEROL 57 mg/dL (40-60); LDL CHOLESTEROL (ONLY SJRH) 98 mg/dL (5-100); TRIGLYCERIDES 106 mg/dL (0-150)
[2019-01-01 07:40] LABS: BLOOD UREA NITROGEN 15.6 mg/dL (7-18); CREATININE 1.1 mg/dL (0.55-1.3); MAGNESIUM 2.2 mg/dL (1.8-2.4); PHOSPHOROUS 3.6 mg/dL (2.5-4.9); POTASSIUM 3.7 mmol/L (3.5-5.1)
[2019-01-01] MEDS ORDERED: PT OWN MED DRAWER 7, Y5N ONE ×2 (08:35→21:35)
[2019-01-01] MEDS: EPLERENONE 25 MG TABLET PO SCH (08:41)
--- NOTE | 2019-01-01 09:10 | PN ---
Progress Note, Physician History of Present Illness: 48 yo male with h/o HTN, nonischemic cardiomyopathy with severe LV dysfunction and h/o failure, h/o DVT, arterial thromboembolism post embolectomy noncompliant with medications including anticoagulation, morbid obesity, ANDRZEJ on home CPAP presented with worsening shortness of breath, cough, orthopna and elevated BP 218/124. Running out of meds over last several months, has been using Alleve for LBP, denies diet indiscretion. He denies chest pain, palpitations, PND or LE edema. Last office visit 05/21/2017 - Current Medication List Current Medications: Active Medications Carvedilol (Coreg -) 25 mg PO BID [facility] Last Admin: 12/31/18 21:00 Dose: 25 mg Eplerenone (Eplerenone) 25 mg PO DAILY@0800 [facility] Last Admin: 01/01/19 08:41 Dose: 25 mg Furosemide (Lasix Injection -) 40 mg IVPUSH BIDLASIX [facility] Last Admin: 01/01/19 05:07 Dose: 40 mg Sacubitril/Valsartan (Entresto 49 Mg-51 Mg Tablet) 1 tab PO BID [facility] Last Admin: 12/31/18 21:00 Dose: Not Given - Objective Vital Signs: Vital Signs Temperature 98.7 F 01/01/19 08:21 Pulse Rate 76 01/01/19 08:21 Respiratory Rate 18 01/01/19 08:21 Blood Pressure 139/87 01/01/19 08:21 O2 Sat by Pulse Oximetry (%) 100 01/01/19 08:22 Eyes: Yes: WNL, Conjunctiva Clear, EOM Intact HENT: Yes: WNL, Atraumatic, Normocephalic Neck: Yes: WNL, Supple, Trachea Midline Cardiovascular: Yes: WNL, Regular Rate and Rhythm Respiratory: Yes: WNL, Regular, CTA Bilaterally Gastrointestinal: Yes: WNL, Normal Bowel Sounds Genitourinary: Yes: WNL Musculoskeletal: Yes: WNL Extremities: Yes: WNL Edema: Yes Edema: LLE: Trace, RLE: Trace Integumentary: Yes: WNL Neurological: Yes: WNL, Alert, Oriented ...Motor Strength: WNL Psychiatric: Yes: WNL Labs: CBC, BMP 01/01/19 05:35 01/01/19 05:35 INR, PTT INR 1.02 (0.83-1.09) 01/01/19 05:35 Assessment/Plan Assessment/Plan 08/13/2017 Echo: Normal LV size with mild decreased LV fxn, mild MRm TR 03/26/2015 Echo: Moderate dilated left ventricle with severe decreased LV systolic function, moderate LAE, mild MR, TR, [place], RVSP 40-50 mmHg 11/20/2015 GBP scan: Normal RV and LV size and fxn, LVEF 60% (while on optimal meds) 04/15/2017 Echo: Mildly dilated LV with mod-severely decreased LV fxn, abnl LV compliance, mod MR, mild TR (off meds) 1. Acute on chronic systolic failure with subendocardial ischemia referable to medication noncompliance and Alleve use 2. Non-ischemic dilated cardiomyopathy with h/o failure 3. HTN/HCVD 4. History of acute peripheral thromboembolism (cardioembolic) on Coumadin with subtherapeutic INR 5. ANDRZEJ on cpap 6. Exogenous obesity 7. Bilateral gynecomastia 8. 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 CKD PLAN: 1. Resume Coreg 25 bid, Entresto 97/103 bid, Inspra 50 qd (given gynecomastia) as hemodynamics tolerate, IV diuresis with monitor diuretic response, renal function and electrolytes 2. Resume coumadin 5 qd per INR 3. Cpap nightly, trend trops to document peak 4. Emphasized importance of compliance with medications, diet and f/u. 5. Patient had recovery of systolic function while on optimal medications, f/u echocardiogram results to re-evaluate systolic function as he has been noncompliant with meds, if LVEF>40% would then change Entresto to Valsartan or Micardis. Coverage for dr. Lawler
[2019-01-01] MEDS: CARVEDILOL 25 MG TABLET (FP) PO SCH ×2 (09:30→21:50)
[2019-01-01] MEDS: SACUBITRIL/VALSARTAN 49 MG-51 MG TABLET PO SCH ×2 (09:31→21:50)
--- NOTE | 2019-01-01 11:29 | EKG ---
Test Reason : Blood Pressure : / mmHG Vent. Rate : 103 BPM Atrial Rate : 103 BPM P-R Int : 174 ms QRS Dur : 084 ms QT Int : 362 ms P-R-T Axes : 052 028 119 degrees QTc Int : 474 ms SINUS TACHYCARDIA POSSIBLE LEFT ATRIAL ENLARGEMENT NONSPECIFIC T WAVE ABNORMALITY ABNORMAL ECG WHEN COMPARED WITH ECG OF 14-APR-2017 19:40, NO SIGNIFICANT CHANGE WAS FOUND Confirmed by LOLY HOLLY MD ([id number]) on 01/01/2019 11:29:23 AM Referred By: Confirmed By:LOLY HOLLY MD
--- NOTE | 2019-01-01 12:02 | PN ---
Progress Note (short form) - Note Progress Note: no shortness of breath or chest pain Vital Signs - 24 hr 12/31/18 12/31/18 12/31/18 16:40 17:10 18:19 Temperature 98.4 F 97.8 F Pulse Rate 91 H Pulse Rate [ 100 H Apical] Respiratory 20 22 H Rate Blood Pressure 159/102 H Blood Pressure 165/113 H [Left Arm] O2 Sat by Pulse 99 98 98 Oximetry (%) 12/31/18 12/31/18 12/31/18 19:33 20:19 22:42 Temperature 98.1 F Pulse Rate 81 Pulse Rate [ Apical] Respiratory 20 22 H Rate Blood Pressure 149/105 H Blood Pressure [Left Arm] O2 Sat by Pulse 98 98 Oximetry (%) 01/01/19 01/01/19 01/01/19 01:53 03:00 04:24 Temperature 98.4 F 97.9 F Pulse Rate 76 71 Pulse Rate [ Apical] Respiratory 20 20 Rate Blood Pressure 119/79 106/72 Blood Pressure [Left Arm] O2 Sat by Pulse 97 Oximetry (%) 01/01/19 01/01/19 01/01/19 08:21 08:22 14:00 Temperature 98.7 F 98.3 F Pulse Rate 76 69 Pulse Rate [ Apical] Respiratory 18 Rate Blood Pressure 139/87 121/77 Blood Pressure [Left Arm] O2 Sat by Pulse 100 Oximetry (%) Current Medications Generic Name Dose Route Start Last Admin Trade Name Freq PRN Reason Stop Dose Admin Carvedilol 25 mg 12/31/18 22:00 01/01/19 09:30 Coreg - PO 25 mg BID AGUILA Administration Eplerenone 25 mg 01/01/19 08:00 01/01/19 08:41 Eplerenone PO 25 mg DAILY@0800 AGUILA Administration Furosemide 40 mg 01/01/19 06:00 01/01/19 13:43 Lasix Injection - IVPUSH 40 mg BIDLASIX AGUILA Administration Sacubitril/Valsartan 1 tab 12/31/18 22:00 01/01/19 09:31 Entresto 49 Mg-51 Mg Tablet PO 1 tab BID AGUILA Administration Laboratory Results - last 24 hr 12/31/18 12/31/18 12/31/18 16:03 16:03 16:03 WBC RBC Hgb Hct MCV MCH MCHC RDW Plt Count MPV Absolute Neuts (auto) Neutrophils % Lymphocytes % Monocytes % Eosinophils % Basophils % Nucleated RBC % PT with INR 11.00 INR 0.93 PTT (Actin FS) 32.3 Sodium 138 Potassium 4.4 Chloride 106 Carbon Dioxide 29 Anion Gap 3 L BUN 17.9 Creatinine 1.2 Est GFR (CKD-EPI)AfAm 81.80 Est GFR (CKD-EPI)NonAf 70.58 Random Glucose 104 Calcium 9.0 Phosphorus Magnesium Total Bilirubin 0.4 AST 43 H ALT 69 H Alkaline Phosphatase 77 Troponin I 0.25 H B-Natriuretic Peptide 2663.5 H Total Protein 6.7 Albumin 3.8 Triglycerides Cholesterol Total LDL Cholesterol HDL Cholesterol 12/31/18 01/01/19 01/01/19 21:30 05:35 05:35 WBC 8.0 RBC 5.76 H Hgb 14.8 Hct 45.0 MCV 78.0 L MCH 25.7 MCHC 32.9 RDW 15.9 Plt Count 257 MPV 8.4 Absolute Neuts (auto) 5.1 Neutrophils % 63.8 Lymphocytes % 21.3 D Monocytes % 10.3 H Eosinophils % 4.1 D Basophils % 0.5 Nucleated RBC % 0 PT with INR INR PTT (Actin FS) Sodium 138 Potassium 3.7 Chloride 103 Carbon Dioxide 31 Anion Gap 5 L BUN 15.6 Creatinine 1.1 Est GFR (CKD-EPI)AfAm 90.88 Est GFR (CKD-EPI)NonAf 78.41 Random Glucose 103 Calcium 9.0 Phosphorus 3.6 Magnesium 2.2 Total Bilirubin AST ALT Alkaline Phosphatase Troponin I 0.21 H 0.16 H B-Natriuretic Peptide Total Protein Albumin Triglycerides Cholesterol Total LDL Cholesterol HDL Cholesterol 01/01/19 01/01/19 01/01/19 05:35 05:35 05:35 WBC RBC Hgb Hct MCV MCH MCHC RDW Plt Count MPV Absolute Neuts (auto) Neutrophils % Lymphocytes % Monocytes % Eosinophils % Basophils % Nucleated RBC % PT with INR 12.00 INR 1.02 PTT (Actin FS) Sodium Potassium Chloride Carbon Dioxide Anion Gap BUN Creatinine Est GFR (CKD-EPI)AfAm Est GFR (CKD-EPI)NonAf Random Glucose Calcium Phosphorus Magnesium Total Bilirubin AST ALT Alkaline Phosphatase Troponin I 0.16 H B-Natriuretic Peptide Total Protein Albumin Triglycerides 106 Cholesterol 182 Total LDL Cholesterol 98 HDL Cholesterol 57 heart sounds regular. Lungs clear. Abdomen soft, nontender No edema plan IV Lasix twice a day Check BMP Cardiology evaluation noted Echocardiogram on Thursday Problem List - Problems (1) CHF (congestive heart failure) Code(s): I50.9 - HEART FAILURE, UNSPECIFIED Qualifiers: Heart failure type: systolic Heart failure chronicity: unspecified Qualified Code(s): I50.20 - Unspecified systolic (congestive) heart failure (2) Elevated troponin Code(s): R79.89 - OTHER SPECIFIED ABNORMAL FINDINGS OF BLOOD CHEMISTRY (3) HTN (hypertension) Code(s): I10 - ESSENTIAL (PRIMARY) HYPERTENSION Qualifiers: Hypertension type: essential hypertension Qualified Code(s): I10 - Essential (primary) hypertension (4) ANDRZEJ (obstructive sleep apnea) Code(s): G47.33 - OBSTRUCTIVE SLEEP APNEA (ADULT) (PEDIATRIC) (5) Severe obesity (BMI >= 40) Code(s): E66.01 - MORBID (SEVERE) OBESITY DUE TO EXCESS CALORIES
[2019-01-01] MEDS ORDERED: WARFARIN NA 5 MG TABLET (UD) PO ONE (18:00)
[2019-01-02] MEDS: FUROSEMIDE 40 MG/4 ML INJECTABLE VIAL IVPUSH SCH ×2 (06:21→13:42)
[2019-01-02 07:54] LABS: INR 0.97 (0.83-1.09); PROTHROMBIN TIME (PATIENT) 11.4 SEC (9.7-13.0)
[2019-01-02] MEDS ORDERED: PT OWN MED DRAWER 7, Y5N ONE ×2 (08:09→20:46)
[2019-01-02] MEDS: EPLERENONE 25 MG TABLET PO SCH (08:55)
[2019-01-02] MEDS: CARVEDILOL 25 MG TABLET (FP) PO SCH ×2 (09:00→21:18)
[2019-01-02] MEDS: SACUBITRIL/VALSARTAN 49 MG-51 MG TABLET PO SCH ×2 (09:00→21:18)
--- NOTE | 2019-01-02 09:09 | PN ---
Progress Note, Physician History of Present Illness: 48 yo male with h/o HTN, nonischemic cardiomyopathy with severe LV dysfunction and h/o failure, h/o DVT, arterial thromboembolism post embolectomy noncompliant with medications including anticoagulation, morbid obesity, ANDRZEJ on home CPAP presented with worsening shortness of breath, cough, orthopna and elevated BP 218/124. Running out of meds over last several months, has been using Alleve for LBP, denies diet indiscretion. He denies chest pain, palpitations, PND or LE edema. Last office visit 05/21/2017 - Current Medication List Current Medications: Active Medications Carvedilol (Coreg -) 25 mg PO BID [facility] Last Admin: 01/02/19 09:00 Dose: 25 mg Eplerenone (Eplerenone) 25 mg PO DAILY@0800 [facility] Last Admin: 01/02/19 08:55 Dose: 25 mg Furosemide (Lasix Injection -) 40 mg IVPUSH BIDLASIX [facility] Last Admin: 01/02/19 06:21 Dose: 40 mg Sacubitril/Valsartan (Entresto 49 Mg-51 Mg Tablet) 1 tab PO BID [facility] Last Admin: 01/02/19 09:00 Dose: 1 tab - Objective Vital Signs: Vital Signs Temperature 98.4 F 01/02/19 08:56 Pulse Rate 76 01/02/19 08:56 Respiratory Rate 18 01/02/19 08:56 Blood Pressure 130/91 01/02/19 08:56 O2 Sat by Pulse Oximetry (%) 97 01/01/19 22:00 Eyes: Yes: WNL, Conjunctiva Clear, EOM Intact HENT: Yes: WNL, Atraumatic, Normocephalic Neck: Yes: WNL, Supple, Trachea Midline Cardiovascular: Yes: WNL, Regular Rate and Rhythm Respiratory: Yes: WNL, Regular, CTA Bilaterally Gastrointestinal: Yes: WNL, Normal Bowel Sounds Genitourinary: Yes: WNL Musculoskeletal: Yes: WNL Extremities: Yes: WNL Edema: Yes Integumentary: Yes: WNL Neurological: Yes: WNL, Alert, Oriented ...Motor Strength: WNL Psychiatric: Yes: WNL Labs: CBC, BMP 01/01/19 05:35 01/01/19 05:35 INR, PTT INR 0.97 (0.83-1.09) 01/02/19 06:00 Assessment/Plan Assessment/Plan 08/13/2017 Echo: Normal LV size with mild decreased LV fxn, mild MRm TR 03/26/2015 Echo: Moderate dilated left ventricle with severe decreased LV systolic function, moderate LAE, mild MR, TR, AZ, RVSP 40-50 mmHg 11/20/2015 GBP scan: Normal RV and LV size and fxn, LVEF 60% (while on optimal meds) 04/15/2017 Echo: Mildly dilated LV with mod-severely decreased LV fxn, abnl LV compliance, mod MR, mild TR (off meds) 1. Acute on chronic systolic failure with subendocardial ischemia referable to medication noncompliance and Alleve use 2. Non-ischemic dilated cardiomyopathy with h/o failure 3. HTN/HCVD 4. History of acute peripheral thromboembolism (cardioembolic) on Coumadin with subtherapeutic INR 5. ANDRZEJ on cpap 6. Exogenous obesity 7. Bilateral gynecomastia 8. 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 CKD PLAN: 1. Resume Coreg 25 bid, Entresto 97/103 bid, Inspra 50 qd (given gynecomastia) as hemodynamics tolerate, IV diuresis with monitor diuretic response, renal function and electrolytes 2. Resume coumadin 5 qd per INR 3. Cpap nightly, trend trops to document peak 4. Emphasized importance of compliance with medications, diet and f/u. 5. Patient had recovery of systolic function while on optimal medications, f/u echocardiogram results to re-evaluate systolic function as he has been noncompliant with meds, if LVEF>40% would then change Entresto to Valsartan or Micardis. Coverage for dr. Lawler
[2019-01-03 06:50] LABS: INR 1.04 (0.83-1.09); PROTHROMBIN TIME (PATIENT) 12.3 SEC (9.7-13.0)
[2019-01-03 07:03] LABS: CALCIUM 9.3 mg/dL (8.5-10.1); CREATININE 1.1 mg/dL (0.55-1.3); POTASSIUM 4.1 mmol/L (3.5-5.1)
[2019-01-03] MEDS: FUROSEMIDE 40 MG/4 ML INJECTABLE VIAL IVPUSH SCH (07:27)
--- NOTE | 2019-01-03 09:30 | PN ---
Progress Note, Physician History of Present Illness: Shortness of breath, cough, orthopna and elevated BP resolving with diuresis and afterload reduction. Back to baseline. - Current Medication List Current Medications: Active Medications Carvedilol (Coreg -) 25 mg PO BID [facility] Last Admin: 01/02/19 21:18 Dose: 25 mg Eplerenone (Eplerenone) 25 mg PO DAILY@0800 [facility] Last Admin: 01/02/19 08:55 Dose: 25 mg Furosemide (Lasix Injection -) 40 mg IVPUSH BIDLASIX [facility] Last Admin: 01/03/19 07:27 Dose: 40 mg Sacubitril/Valsartan (Entresto 49 Mg-51 Mg Tablet) 1 tab PO BID [facility] Last Admin: 01/02/19 21:18 Dose: 1 tab - Objective Vital Signs: Vital Signs Temperature 98.9 F 01/03/19 09:14 Pulse Rate 86 01/03/19 09:14 Respiratory Rate 18 01/03/19 09:14 Blood Pressure 124/94 01/03/19 09:14 O2 Sat by Pulse Oximetry (%) 97 01/03/19 07:45 Constitutional: Yes: No Distress, Calm Neck: Yes: Supple Cardiovascular: Yes: Regular Rate and Rhythm Respiratory: Yes: Regular, CTA Bilaterally Gastrointestinal: Yes: Normal Bowel Sounds, Soft Edema: No Labs: CBC, BMP 01/01/19 05:35 01/03/19 06:00 INR, PTT INR 1.04 (0.83-1.09) 01/03/19 06:00 - ....Imaging EKG: Report Reviewed (Tele: NSR) Problem List - Problems (1) Subendocardial ischemia Code(s): I24.8 - OTHER FORMS OF ACUTE ISCHEMIC HEART DISEASE (2) Hypertensive cardiomyopathy Code(s): I11.9 - HYPERTENSIVE HEART DISEASE WITHOUT HEART FAILURE; I43 - CARDIOMYOPATHY IN DISEASES CLASSIFIED ELSEWHERE Qualifiers: Heart failure presence: with heart failure Qualified Code(s): I11.0 - Hypertensive heart disease with heart failure; I43 - Cardiomyopathy in diseases classified elsewhere (3) Acute on chronic systolic (congestive) heart failure Code(s): I50.23 - ACUTE ON CHRONIC SYSTOLIC (CONGESTIVE) HEART FAILURE (4) Dilated cardiomyopathy Code(s): I42.0 - DILATED CARDIOMYOPATHY (5) Noncompliance Code(s): Z91.19 - PATIENT'S NONCOMPLIANCE W OTH MEDICAL TREATMENT AND REGIMEN (6) ANDRZEJ (obstructive sleep apnea) Code(s): G47.33 - OBSTRUCTIVE SLEEP APNEA (ADULT) (PEDIATRIC) (7) Shortness of breath Code(s): R06.02 - SHORTNESS OF BREATH Assessment/Plan 08/13/2017 Echo: Normal LV size with mild decreased LV fxn, mild MRm TR 03/26/2015 Echo: Moderate dilated left ventricle with severe decreased LV systolic function, moderate LAE, mild MR, TR, AZ, RVSP 40-50 mmHg 11/20/2015 GBP scan: Normal RV and LV size and fxn, LVEF 60% (while on optimal meds) 04/15/2017 Echo: Mildly dilated LV with mod-severely decreased LV fxn, abnl LV compliance, mod MR, mild TR (off meds) 1. Acute on chronic systolic failure with subendocardial ischemia referable to medication noncompliance and Alleve use 2. Non-ischemic dilated cardiomyopathy with h/o failure 3. HTN/HCVD 4. History of acute peripheral thromboembolism (cardioembolic) on Coumadin with subtherapeutic INR 5. ANDRZEJ on cpap 6. Exogenous obesity 7. Bilateral gynecomastia 8. 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 CKD PLAN: 1. Continue Coreg 25 bid, Entresto 97/103 bid, Inspra 50 qd (given gynecomastia ) as hemodynamics tolerate, decrease oral diuresis with monitor diuretic response, renal function and electrolytes 2. Resume coumadin 5 qd per INR 3. Cpap nightly, trops have peaked 4. Emphasized importance of compliance with medications, diet and f/u. 5. Patient had recovery of systolic function while on optimal medications, f/u echocardiogram results to re-evaluate systolic function as he has been noncompliant with meds, if LVEF>40% would then change Entresto to Valsartan or Micardis.
[2019-01-03] MEDS ORDERED: PT OWN MED DRAWER 7, Y5N ONE ×3 (09:47→21:10)
[2019-01-03] MEDS: CARVEDILOL 25 MG TABLET (FP) PO SCH ×2 (09:51→21:11)
[2019-01-03] MEDS: EPLERENONE 25 MG TABLET PO SCH (09:51)
[2019-01-03] MEDS: SACUBITRIL/VALSARTAN 49 MG-51 MG TABLET PO SCH (09:51)
[2019-01-03] MEDS ORDERED: EPLERENONE 25 MG TABLET PO SCH (10:03)
[2019-01-03] MEDS ORDERED: SACUBITRIL/VALSARTAN 97 MG-103 MG TABLET PO SCH (10:45)
--- NOTE | 2019-01-03 11:39 | ECHO ---
Name: GINI SCHNEIDER Exam:Adult Echocardiogram Study Date: 01/03/2019 08:33 AM Age: 48 yrs Height: 67 in Weight: 258 lb BSA: 2.3 m2 MMode/2D Measurements & Calculations IVSd: 1.3 cm Ao root diam: 2.9 cm LVIDd: 4.3 cm LA dimension: 4.1 cm LVIDs: 3.1 cm LVPWd: 1.2 cm LVPWs: 1.9 cm EDV(Teich): 82.1 ml ESV(Teich): 36.5 ml LVOT diam: 2.2 cm RV S Jeffery: 12.8 cm/sec Doppler Measurements & Calculations MV E max jeffery: 48.9 cm/sec Ao V2 max: 106.7 cm/sec MV A max jeffery: 72.6 cm/sec Ao max P.6 mmHg MV E/A: 0.67 MV dec time: 0.12 sec MELVA(V,D): 2.7 cm2 LV V1 max P.3 mmHg PA V2 max: 102.5 cm/sec LV V1 max: 75.5 cm/sec PA max P.2 mmHg Med Peak E' Jeffery: 3.2 cm/sec Med E/e': 15.2 Lat Peak E' Jeffery: 4.2 cm/sec Lat E/e': 11.7 Procedure A complete two-dimensional transthoracic echocardiogram was performed (2D, M-mode, Doppler and color flow Doppler). Technically limited study. Left Ventricle The left ventricle is normal in size. There is mild concentric left ventricular hypertrophy. Regional wall motion abnormality could not be accurately assessed due to poor acoustic window, but LV function appe ars mildly decreased. Grade I diastolic dysfunction, (abnormal relaxation pattern). Ratio E/E'= 14. Right Ventricle The right ventricle is normal size. The right ventricular systolic function is normal. RV systolic TD I is 13 cm/s. Atria The left atrium is mildly dilated. Right atrial size is normal. Mitral Valve There is mild mitral annular calcification. There is no mitral regurgitation noted. Tricuspid Valve The tricuspid valve is normal in structure and function. No tricuspid regurgitation. Aortic Valve There is mild aortic sclerosis.;. No aortic regurgitation is present. Pulmonic Valve The pulmonic valve is not well visualized. Great Vessels The aortic root is normal size. Pericardium/Pleura There is no pericardial effusion. Interpretation Summary Technically limited study The left ventricle is normal in size. There is mild concentric left ventricular hypertrophy. Regional wall motion abnormality could not be accurately assessed due to poor acoustic window, but LV function appears mildly decreased Grade I diastolic dysfunction, (abnormal relaxation pattern). Ratio E/E'= 14 The right ventricular systolic function is normal. The left atrium is mildly dilated. Right atrial size is normal. There is mild mitral annular calcification. There is mild aortic sclerosis. No significant valvular regurgitations are seen There is no pericardial effusion. Previous study is not available for comparison Marcelino Hodges MD 01/03/2019 11:39 AM
--- NOTE | 2019-01-03 11:59 | PN ---
Progress Note, Physician History of Present Illness: pt seen/ examined chart reviewed feels better denies cp - Current Medication List Current Medications: Active Medications Carvedilol (Coreg -) 25 mg PO BID [facility] Last Admin: 01/03/19 09:51 Dose: 25 mg Eplerenone (Eplerenone) 50 mg PO DAILY@0800 [facility] Furosemide (Lasix -) 40 mg PO DAILY [facility] Sacubitril/Valsartan (Entresto 97 Mg-103 Mg Tablet) 1 tab PO BID [facility] Warfarin Sodium (Coumadin -) 5 mg PO DAILY@1800 [facility] - Objective Vital Signs: Vital Signs Temperature 98.9 F 01/03/19 09:14 Pulse Rate 86 01/03/19 09:14 Respiratory Rate 18 01/03/19 09:14 Blood Pressure 124/94 01/03/19 09:14 O2 Sat by Pulse Oximetry (%) 100 01/03/19 09:00 Constitutional: Yes: No Distress, Calm, Obese Eyes: Yes: Conjunctiva Clear Neck: Yes: Supple Cardiovascular: Yes: Regular Rate and Rhythm Respiratory: Yes: Diminished Gastrointestinal: Yes: Soft, Abdomen, Obese Edema: LLE: Trace, RLE: Trace Neurological: Yes: Alert Psychiatric: Yes: Alert Labs: CBC, BMP 01/01/19 05:35 01/03/19 06:00 INR, PTT INR 1.04 (0.83-1.09) 01/03/19 06:00 Problem List - Problems (1) CHF (congestive heart failure) Code(s): I50.9 - HEART FAILURE, UNSPECIFIED Qualifiers: Heart failure type: systolic Heart failure chronicity: unspecified Qualified Code(s): I50.20 - Unspecified systolic (congestive) heart failure (2) Elevated troponin Code(s): R79.89 - OTHER SPECIFIED ABNORMAL FINDINGS OF BLOOD CHEMISTRY (3) HTN (hypertension) Code(s): I10 - ESSENTIAL (PRIMARY) HYPERTENSION Qualifiers: Hypertension type: essential hypertension Qualified Code(s): I10 - Essential (primary) hypertension (4) Hypertensive cardiomyopathy Code(s): I11.9 - HYPERTENSIVE HEART DISEASE WITHOUT HEART FAILURE; I43 - CARDIOMYOPATHY IN DISEASES CLASSIFIED ELSEWHERE Qualifiers: Heart failure presence: with heart failure Qualified Code(s): I11.0 - Hypertensive heart disease with heart failure; I43 - Cardiomyopathy in diseases classified elsewhere (5) Severe obesity (BMI >= 40) Code(s): E66.01 - MORBID (SEVERE) OBESITY DUE TO EXCESS CALORIES (6) Dilated cardiomyopathy Code(s): I42.0 - DILATED CARDIOMYOPATHY Assessment/Plan Meds reviewed overall better continue present care Started on coumadin for cardiomyopathy ? h/o dvt ? pt did not see pmd = > 1 year Monitor inr will contact Dr. Hernandez office to clarify will order u/s doppler also will follow
[2019-01-03] MEDS ORDERED: SACUBITRIL/VALSARTAN 49 MG-51 MG TABLET PO ONE (12:15)
[2019-01-03 14:57] VITALS: BMI 41.9
[2019-01-03] MEDS ORDERED: WARFARIN NA 5 MG TABLET (UD) PO SCH (18:00)
[2019-01-03] MEDS: SACUBITRIL/VALSARTAN 97 MG-103 MG TABLET PO SCH (21:11)
[2019-01-04] MEDS ORDERED: PT OWN MED DRAWER 7, Y5N ONE (09:01)
[2019-01-04] MEDS: SACUBITRIL/VALSARTAN 97 MG-103 MG TABLET PO SCH (09:26)
[2019-01-04] MEDS: CARVEDILOL 25 MG TABLET (FP) PO SCH (09:26)
[2019-01-04 09:52] VITALS: BP 107/71; PULSE 76; TEMP 98.9
[2019-01-04] MEDS ORDERED: FUROSEMIDE 40 MG TABLET (FP) PO SCH (10:00)
--- NOTE | 2019-01-04 12:17 | DS ---
Physical Examination Vital Signs: Vital Signs Temperature 98.9 F 01/04/19 09:51 Pulse Rate 76 01/04/19 09:51 Respiratory Rate 19 01/04/19 09:51 Blood Pressure 107/71 01/04/19 09:51 O2 Sat by Pulse Oximetry (%) 98 01/04/19 07:41 Constitutional: Yes: No Distress Cardiovascular: Yes: Regular Rate and Rhythm Respiratory: Yes: CTA Bilaterally Gastrointestinal: Yes: Normal Bowel Sounds, Soft. No: Tenderness Edema: No Labs: CBC, BMP 01/01/19 05:35 01/03/19 06:00 Discharge Summary Problems reviewed: Yes Reason For Visit: HYPERTENSIVE EMERGENCY SOB ELEVATED TROPONIN LEVEL Current Active Problems CHF (congestive heart failure) (Acute) Elevated troponin (Acute) HTN (hypertension) (Acute) Hypertensive cardiomyopathy (Acute) NSTEMI (non-ST elevated myocardial infarction) (Acute) ANDRZEJ (obstructive sleep apnea) (Acute) Severe obesity (BMI >= 40) (Acute) Subendocardial ischemia (Acute) Hospital Course: Admitted for HTN urgency , systolic CHF decompensation Started on IV lasix and meds non compliant with meds Pt was evaluated by Cardiology-- elevated troponins due to demand ischemia On CPAP pt better BP better No SOB no chest pain stable for dc home and advised to be compliant with meds and follow up with Cardiology and PMD in 2 weeks Condition: Stable - Instructions Referrals: Alejandro Lawler MD [Staff Physician] - Candido Santiago MD [Staff Physician] - Disposition: HOME - Home Medications Comprehensive Discharge Medication List: Ambulatory Orders Carvedilol [Coreg -] 25 mg PO BID #60 tablet 04/19/17 Eplerenone 25 mg PO DAILY #30 tablet 04/19/17 Sacubitril/Valsartan [Entresto 97 mg-103 mg Tablet] 1 tab PO BID #60 tablet
--- NOTE | 2019-01-04 14:06 | PN ---
Progress Note, Physician Chief Complaint: Events noted Not in distress and feels better History of Present Illness: Patient was seen and examined. Awake and alert. Chart was reviewed Denies chest pain, SOB or palpitations - Current Medication List Current Medications: Active Medications Carvedilol (Coreg -) 25 mg PO BID [facility] Last Admin: 01/04/19 09:26 Dose: 25 mg Eplerenone (Eplerenone) 50 mg PO DAILY@0800 [facility] Last Admin: 01/04/19 09:25 Dose: 50 mg Furosemide (Lasix -) 40 mg PO DAILY [facility] Last Admin: 01/04/19 09:26 Dose: 40 mg Sacubitril/Valsartan (Entresto 97 Mg-103 Mg Tablet) 1 tab PO BID [facility] Last Admin: 01/04/19 09:26 Dose: 1 tab - Objective Vital Signs: Vital Signs Temperature 98.9 F 01/04/19 09:51 Pulse Rate 76 01/04/19 09:51 Respiratory Rate 19 01/04/19 09:51 Blood Pressure 107/71 01/04/19 09:51 O2 Sat by Pulse Oximetry (%) 98 01/04/19 07:41 HENT: Yes: Atraumatic Neck: Yes: Supple Cardiovascular: Yes: Regular Rate and Rhythm, S1, S2 Respiratory: Yes: Diminished Gastrointestinal: Yes: Normal Bowel Sounds, Soft, Abdomen, Obese. No: Tenderness Edema: No Additional Findings/Remarks: - Review of Systems Constitutional: denies Weakness. denies: Chills, Fever Cardiovascular: denies Chest Pain. denies: Palpitations, Shortness of Breath Respiratory: denies: Cough, Hemoptysis, Orthopnea, PND, SOB, SOB on Exertion, Wheezing Gastrointestinal: denies: Abdominal Pain, Constipation, Diarrhea, Melena, Nausea , Rectal Bleeding, Vomiting Genitourinary: denies: Dysuria, Hematuria Neurological: denies: Dizziness, Headache, Seizure, Syncope Problem List - Problems (1) Acute on chronic systolic (congestive) heart failure Code(s): I50.23 - ACUTE ON CHRONIC SYSTOLIC (CONGESTIVE) HEART FAILURE (2) CHF (congestive heart failure) Code(s): I50.9 - HEART FAILURE, UNSPECIFIED Qualifiers: Heart failure type: systolic Heart failure chronicity: unspecified Qualified Code(s): I50.20 - Unspecified systolic (congestive) heart failure (3) Dilated cardiomyopathy Code(s): I42.0 - DILATED CARDIOMYOPATHY (4) HTN (hypertension) Code(s): I10 - ESSENTIAL (PRIMARY) HYPERTENSION Qualifiers: Hypertension type: essential hypertension Qualified Code(s): I10 - Essential (primary) hypertension (5) History of popliteal artery thrombosis Code(s): Z86.718 - PERSONAL HISTORY OF OTHER VENOUS THROMBOSIS AND EMBOLISM (6) ANDRZEJ (obstructive sleep apnea) Code(s): G47.33 - OBSTRUCTIVE SLEEP APNEA (ADULT) (PEDIATRIC) (7) Subendocardial ischemia Code(s): I24.8 - OTHER FORMS OF ACUTE ISCHEMIC HEART DISEASE Assessment/Plan 1. Acute on chronic systolic failure with subendocardial ischemia referable to medication noncompliance and NSAID use 2. Non-ischemic dilated cardiomyopathy 3. HTN/HCVD 4. History of acute peripheral thromboembolism (cardioembolic) 5. ANDRZEJ on cpap 6. Exogenous obesity 7. Bilateral gynecomastia 8. History of anaphylactic shock to soy 9. CKD PLAN: 1. Continue Coreg 25 mg BID, Entresto 97/103 mg BID, Inspra 50 mg QD (given gynecomastia) as hemodynamics tolerate. Continue diuretics. Monitor renal function and electrolytes 2. CPAP nightly 3. Emphasized importance of compliance with medications, diet and medical follow ups 4. Discharge planning Marcelino Hodges MD
== END 2019-01-04 14:00 | disposition home or self-care (01) | DRG 292 ==
LOC: JER 15:45 → JERBED 17:05 → J4W 18:11
PROVIDERS: ADMIT Internal Medicine; ATTEND Internal Medicine
DX: I11.0 Hypertensive heart disease with heart failure (principal); Z68.41 Body mass index [BMI] 40.0-44.9, adult; I24.8 Other forms of acute ischemic heart disease; I50.23 Acute on chronic systolic (congestive) heart failure; G47.33 Obstructive sleep apnea (adult) (pediatric); I42.8 Other cardiomyopathies; I25.2 Old myocardial infarction; E66.01 Morbid (severe) obesity due to excess calories; E78.5 Hyperlipidemia, unspecified; R00.0 Tachycardia, unspecified; R79.89 Other specified abnormal findings of blood chemistry; N62 Hypertrophy of breast; I25.10 Atherosclerotic heart disease of native coronary artery without angina pectoris; Z86.718 Personal history of other venous thrombosis and embolism; Z91.19 Patient's noncompliance with other medical treatment and regimen; Z79.1 Long term (current) use of non-steroidal anti-inflammatories (NSAID); Z79.01 Long term (current) use of anticoagulants
CPT/HCPCS: 36415; 71046-TC-FY; 80048; 80053; 80061; 82803; 83721; 83735; 83880; 84100; 84484; 85025; 85610; 85730; 93005; 93010; 93306-TC; 93970-TC; 94660; 99284-25

== ENCOUNTER 2020-11-02 13:01 | Emergency (ER) | payer OTHER ==
[2020-11-02 13:18] VITALS: BP 155/95; PULSE 78; TEMP 99.4; BMI 40.7
== END 2020-11-02 13:51 | disposition home or self-care (01) ==
LOC: FER 13:01
DX: R09.89 Other specified symptoms and signs involving the circulatory and respiratory systems (principal)
CPT/HCPCS: 99283-25

== ENCOUNTER 2023-05-05 15:23 | Emergency (ER) | payer OTHER ==
[2023-05-05 15:40] VITALS: BP 127/83; PULSE 80; RESP 20; TEMP 98; BMI 42.3
[2023-05-05] MEDS ORDERED: DEXAMETHASONE SOD PHOSPHATE 10 MG/1 ML VIAL ONE (16:41)
[2023-05-05] MEDS ORDERED: diazePAM 5 MG TABLET ONE (16:41)
[2023-05-05] MEDS: DEXAMETHASONE SOD PHOSPHATE 10 MG/1 ML VIAL IM ONE (16:45)
[2023-05-05] MEDS: diazePAM 5 MG TABLET PO ONE (16:45)
[2023-05-05 17:03] LABS: HEMATOCRIT 40.9 % (35.4-49); HEMOGLOBIN 13.7 G/dL (11.7-16.9); MCH 25.6 pg (25.7-33.7); MCHC 33.4 g/dl (32.0-35.9); MEAN CELL VOLUME 76.7 fl (80-96); MEAN PLT VOLUME 7.7 fl (7.5-11.1); PLATELET COUNT 260.4 10^3/uL (134-434); RBC 5.33 10^6/uL (4.00-5.60); RDW 16.4 % (11.9-15.9); WHITE BLOOD COUNT 8.5 10^3/uL (4.0-10.8)
[2023-05-05 17:16] LABS: ALBUMIN 4.4 g/dl (3.4-5.0); BILIRUBIN,TOTAL 0.4 mg/dl (0.2-1); CALCIUM 9.8 mg/dl (8.5-10.1); TOT PROT 6.8 g/dl (6.4-8.2)
[2023-05-05 17:17] LABS: MAGNESIUM 1.7 mg/dL (1.8-2.4)
== END 2023-05-05 18:35 | disposition home or self-care (01) ==
LOC: FER 15:23
PROC: 3E023GC Introduction of Other Therapeutic Substance into Muscle, Percutaneous Approach (ICD-10-PCS; principal; 2023-05-05)
DX: M54.6 Pain in thoracic spine (principal)
CPT/HCPCS: 36415; 71046-TC-FY; 80053; 82550; 82553; 83735; 84484; 85027; 93005; 99284-25; J1100